=== PATIENT | female | born 1960 | race Two or more races ===

== ENCOUNTER 2018-03-13 16:06 | Inpatient (IN) | payer MEDICAID, OTHER ==
[~2018-03-13] VITALS: Ht 152.4 cm; Wt 65.0 kg
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
[2018-03-13 16:48] LABS: BASOPHILS # (AUTO) 0.01 x10^3/uL (0-0.1); BASOPHILS % (AUTO) 0 % (0-1); EOSINOPHILS # (AUTO) 0.05 x10^3/uL (0-0.4); EOSINOPHILS % (AUTO) 1 % (1-7); LYMPHOCYTES # (AUTO) 2.62 x10^3/uL (1-3.4); LYMPHOCYTES % (AUTO) 31 % (22-44); MD NO; MEAN CORPUSCULAR HEMOGLOBIN 31.7 pg (27.0-34.8); MEAN CORPUSCULAR HGB CONC 33.5 g/dL (32.4-35.8); MEAN CORPUSCULAR VOLUME 94.5 fL (80-100); MEAN PLATELET VOLUME 9.6 fL (7.4-10.4); MONOCYTES # (AUTO) 0.49 x10^3/uL (0.2-0.8); MONOCYTES % (AUTO) 6 % (2-9); NEUTROPHILS # (AUTO) 5.39 x10^3/uL (1.8-6.8); NEUTROPHILS % (AUTO) 63 % (42-75); PLATELET COUNT 240 x10^3/uL (130-400); RED BLOOD COUNT 3.71 x10^6/uL (3.82-5.3); RED CELL DISTRIBUTION WIDTH 14.9 % (9.6-15.2)
[2018-03-13 17:02] LABS: ALANINE AMINOTRANSFERASE 33 U/L (12-78); ALBUMIN 3.8 g/dL (3.4-5.0); ANION GAP 9 mmol/L (5-15); CALCIUM 9.3 mg/dL (8.5-10.1); CHLORIDE 108 mmol/L (98-107); CREATININE 0.97 mg/dL (0.55-1.02)
[2018-03-13 17:03] LABS: SALICYLATE LEVEL < 1.7 mg/dL (2.8-20.0)
[2018-03-13 17:04] LABS: ALKALINE PHOSPHATASE 64 U/L (45-117); BILIRUBIN,TOTAL 0.6 mg/dL (0.2-1.0); TOTAL PROTEIN 7.5 g/dL (6.4-8.2)
[2018-03-13 17:05] LABS: ACETAMINOPHEN < 2 mcg/mL (10-30)
--- NOTE | 2018-03-13 18:09 | NUR ---
LATE ENTRY FOR 1744 PT STATES SHE DOESN'T HAVE TO USE THE BATHROOM AT THIS TIME. PT ASKS THIS RN "ASK ME LATER, I MAY HAVE TO GO THEN." NO ACUTE DISTRESS NOTED. ALL SAFETY MEASURES OBTAINED.
--- NOTE | 2018-03-13 18:14 | NUR ---
PT HAS ONE BELONGING BAG IN LOCKER. RED SHIRT AND JACKET.
--- NOTE | 2018-03-13 18:29 | NUR ---
PT AMBULATORY WITH STEADY GAIT TO BATHROOM. UA SAMPLE PROVIDED. PT BACK TO ROOM. DIET TRAY DELIVERED. ALL SAFETY MEASURES OBTAINED.
[2018-03-13 18:44] LABS: CULTURE INDICATED? YES; MICROSCOPIC INDICATED
[2018-03-13 18:54] LABS: AMPHETAMINE SCREEN, URINE Negative (Negative); BARBITURATE SCREEN, URINE Negative (Negative); BENZODIAZEPINE SCREEN, URINE Negative (Negative); CANNABINOID SCREEN, URINE Negative (Negative); COCAINE SCREEN, URINE Negative (Negative); METHADONE SCREEN, URINE Negative (Negative); OPIATE SCREEN, URINE Negative (Negative)
--- NOTE | 2018-03-13 18:56 | NUR ---
BEDSIDE REPORT TO AP PATIÑO.
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
--- NOTE | 2018-03-13 20:44 | NUR ---
PT SLEEPING. RESPIRATIONS EVEN AND UNLABORED. SITTER OUTSIDE DOOR. ROOM REMAINS SECURE. WILL CONTINUE TO MONITOR.
--- NOTE | 2018-03-13 21:16 | NUR ---
HOSPITALIST AT BEDSIDE EVALUATING PT.
--- NOTE | 2018-03-13 22:53 | NUR ---
PT CONTINUES TO SLEEP. ROOM SECURE. RESPIRATIONS EVEN AND UNLABORED. SITTER OUTSIDE DOOR MONITORING PT.
[2018-03-14] MEDS ORDERED: ONDANSETRON ODT 4 MG PO PRN
[2018-03-14] MEDS ORDERED: DOCUSATE 100 MG CAPSULE PO PRN
[2018-03-14] MEDS ORDERED: BENZTROPINE 1 MG TABLET PO PRN
--- NOTE | 2018-03-14 00:23 | NUR ---
PT LYING AWAKE ON GURNEY, SITTING QUIETLY WATCHING TV. PT DENIES ANY NEEDS AT THIS TIME. SITTER OUTSIDE DOORWAY MONITORING PT. WILL CONTINUE TO MONITOR.
--- NOTE | 2018-03-14 01:18 | NUR ---
PT SLEEPING. RESPIRATIONS EVEN AND UNLABORED. SITTER OUTSIDE DOOR MONITORING PT, WILL CONTINUE TO MONITOR.
--- NOTE | 2018-03-14 02:49 | NUR ---
PT SLEEPING. SITTER OUTSIDE DOOR MONITORING PT. ROOM REMAINS SECURE. RESPIRATIONS EVEN AND UNLABORED. WILL CONTINUE TO MONITOR.
--- NOTE | 2018-03-14 04:10 | NUR ---
PT CONTINUES TO SLEEP. RESPIRATIONS EVEN AND UNLABORED. SITTER OUTSIDE DOOR MONITORING PT
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
--- NOTE | 2018-03-14 07:00 | NUR ---
REPORT TO AP VASQUEZ
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
--- NOTE | 2018-03-14 08:01 | NUR ---
Pt provided breakfast tray. Pt appreciative. Turned on T.V. in pt's room. Pt appreciative. Introduced new sitter to pt, pt interacting with sitter and says, "Carissa.". NADN. No needs expressed at this time. All safety measures in place. Sitter near doorway in direct line of sight for observation.
--- NOTE | 2018-03-14 08:30 | NUR ---
Pt sitting on gurney watching T.V. Pt cooperative with having vital signs taken. Pt states, "Everyone is doing good in here. There are people walking around. Someone over there (pt points to corner of her room, no one is present)." Pt states, "I don't need anything else in here." NADN. No needs expressed. Sitter near doorway in direct line of sight. All safety measures in place.
--- NOTE | 2018-03-14 09:24 | NUR ---
Pt assisted to restroom. Pt walks with steady gait and balance. Pt talking to self in restroom, saying, "Oh hello." Pt confused on how to shut bathroom door. Pt assisted. Pt ambulates back to room with steady gait and balance. New linens provided and warm blankets provided for comfort measures. NADN. No needs expressed at this time. Pt provided T.V. per request. Pt watching movie and repeatedly stating, "how cute."
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
--- NOTE | 2018-03-14 11:16 | NUR ---
Spoke to Jenae Video Tape Editor and informed her that pt's is present at this time.
--- NOTE | 2018-03-14 11:18 | NUR ---
Pt's states his name is "Lane Hairston".
--- NOTE | 2018-03-14 11:28 | NUR ---
PT TEARFUL AND ASKING , "WHERE DID YOU GO? YOU BETTER NOT LEAVE HERE WITH OUT ME BECAUSE YOU MIGHT LEAVE ME." PT AMBULATED TO RESTROOM WITH HELP OF AND SITTER. PT RETURNED TO ROOM AND PROVIDED WARM BLANKETS FOR COMFORT MEASURES.
--- NOTE | 2018-03-14 12:13 | NUR ---
ATTEMPTED TO CALL REPORT TO MATILDE MABRY RN. RN UNAVAILABLE AT THIS TIME DUE TO "GIVING A PT A MEDICAITON". 2N RN WILL CALL BACK FOR REPORT.
--- NOTE | 2018-03-14 12:21 | NUR ---
PROVIDED REPORT TO AP GATICA. ALL QUESTIONS ANSWERED. PT READY TO TRANSFER FROM ED TO .
--- NOTE | 2018-03-14 13:18 | NUR ---
PT TRANSFERED FROM ED TO FLOOR. PT LEFT WITH ALL PERSONAL BELONGINGS.
[2018-03-14 20:19] VITALS: BP 117/76
[2018-03-14] MEDS: QUETIAPINE 25MG TABLET PO PRN (21:11)
[2018-03-15] MEDS: QUETIAPINE 25MG TABLET PO PRN ×2 (06:29→21:11)
[2018-03-15 07:26] VITALS: BP 114/74
[2018-03-16] MEDS: QUETIAPINE 25MG TABLET PO PRN (04:15)
[2018-03-16 07:21] VITALS: BP 112/70
[2018-03-16] MEDS: MEMANTINE 10MG TABLET PO SCH (12:02)
[2018-03-16 20:14] VITALS: BP 110/74
[2018-03-17] MEDS: QUETIAPINE 25MG TABLET PO PRN ×3 (02:56→20:58)
[2018-03-17] MEDS: MEMANTINE 10MG TABLET PO SCH (07:35)
[2018-03-17 08:12] VITALS: BP 122/71
[2018-03-17] MEDS ORDERED: LORazepam 2 MG/ML, 1ML IVPush ONE ×2 (12:08→12:30)
[2018-03-17 13:02] VITALS: BP 89/59
[2018-03-17] MEDS ORDERED: OMNIPAQUE 350 MG/ML, 100ML BOTTLE ONE (13:18)
[2018-03-17 13:22] LABS: ALANINE AMINOTRANSFERASE 21 U/L (12-78); ALBUMIN 2.9 g/dL (3.4-5.0); ANION GAP 6 mmol/L (5-15); CALCIUM 8.4 mg/dL (8.5-10.1); CHLORIDE 108 mmol/L (98-107); CREATININE 0.82 mg/dL (0.55-1.02)
[2018-03-17 13:24] LABS: ALKALINE PHOSPHATASE 49 U/L (45-117); BILIRUBIN,TOTAL 0.6 mg/dL (0.2-1.0); TOTAL PROTEIN 5.8 g/dL (6.4-8.2)
[2018-03-17] MEDS ORDERED: SODIUM CHLORIDE 0.45% 1,000 ML IV SCH (13:30)
[2018-03-17] MEDS ORDERED: MAGNESIUM SULFATE PMX 4GM/100M 100 ML IV ONE (13:30)
[2018-03-17] MEDS ORDERED: PINK LADY ENEMA 490 ML BOTTLE PR SCH (13:30)
[2018-03-17] MEDS ORDERED: POTASSIUM CHLORIDE 20 MEQ TAB.ER.PRT PO ONE ×2 (13:30→17:30)
[2018-03-17 13:40] LABS: BASOPHILS # (AUTO) 0.02 x10^3/uL (0-0.1); BASOPHILS % (AUTO) 0 % (0-1); EOSINOPHILS % (AUTO) 2 % (1-7); LYMPHOCYTES # (AUTO) 2.09 x10^3/uL (1-3.4); LYMPHOCYTES % (AUTO) 41 % (22-44); MD NO; MEAN CORPUSCULAR HEMOGLOBIN 32.2 pg (27.0-34.8); MEAN CORPUSCULAR HGB CONC 34.2 g/dL (32.4-35.8); MEAN CORPUSCULAR VOLUME 94.2 fL (80-100); MEAN PLATELET VOLUME 9.3 fL (7.4-10.4); MONOCYTES # (AUTO) 0.31 x10^3/uL (0.2-0.8); MONOCYTES % (AUTO) 6 % (2-9); NEUTROPHILS % (AUTO) 51 % (42-75); PLATELET COUNT 206 x10^3/uL (130-400); RED BLOOD COUNT 3.24 x10^6/uL (3.82-5.3); RED CELL DISTRIBUTION WIDTH 14.6 % (9.6-15.2)
[2018-03-17] MEDS: POTASSIUM CHLORIDE 20 MEQ in SODIUM CHLORIDE 0.45% 1,000 ML IV SCH (14:51)
[2018-03-17 15:53] LABS: MICROSCOPIC NOT IND
[2018-03-17 16:01] LABS: CULTURE INDICATED? NO
[2018-03-17] MEDS: MAGNESIUM CITRATE 300ML ORAL SOL PO PRN (17:28)
[2018-03-17] MEDS: NEUTRA PHOS K 250 MG TABLET PO SCH ×2 (17:29→20:58)
[2018-03-17] MEDS: BISACODYL 10 MG SUPP PR PRN (18:35)
[2018-03-17 20:00] VITALS: BP 94/51
[2018-03-18 03:00] VITALS: BP 94/62
[2018-03-18] MEDS: POTASSIUM CHLORIDE 20 MEQ in SODIUM CHLORIDE 0.45% 1,000 ML IV SCH ×2 (04:38→16:26)
[2018-03-18] MEDS: QUETIAPINE 25MG TABLET PO PRN ×3 (04:58→20:05)
[2018-03-18 05:55] LABS: BASOPHILS # (AUTO) 0.02 x10^3/uL (0-0.1); BASOPHILS % (AUTO) 0 % (0-1); EOSINOPHILS # (AUTO) 0.08 x10^3/uL (0-0.4); EOSINOPHILS % (AUTO) 1 % (1-7); LYMPHOCYTES # (AUTO) 2.32 x10^3/uL (1-3.4); LYMPHOCYTES % (AUTO) 36 % (22-44); MD NO; MEAN CORPUSCULAR HEMOGLOBIN 31.3 pg (27.0-34.8); MEAN CORPUSCULAR HGB CONC 33.2 g/dL (32.4-35.8); MEAN CORPUSCULAR VOLUME 94.2 fL (80-100); MEAN PLATELET VOLUME 10.1 fL (7.4-10.4); MONOCYTES # (AUTO) 0.47 x10^3/uL (0.2-0.8); MONOCYTES % (AUTO) 7 % (2-9); NEUTROPHILS # (AUTO) 3.57 x10^3/uL (1.8-6.8); NEUTROPHILS % (AUTO) 55 % (42-75); PLATELET COUNT 232 x10^3/uL (130-400); RED BLOOD COUNT 3.83 x10^6/uL (3.82-5.3); RED CELL DISTRIBUTION WIDTH 14.8 % (9.6-15.2)
[2018-03-18 05:57] LABS: CHLORIDE 110 mmol/L (98-107)
[2018-03-18 06:28] LABS: ALANINE AMINOTRANSFERASE 27 U/L (12-78); ALBUMIN 3.2 g/dL (3.4-5.0); ALKALINE PHOSPHATASE 59 U/L (45-117); ANION GAP 7 mmol/L (5-15); BILIRUBIN,TOTAL 0.8 mg/dL (0.2-1.0); CALCIUM 8.4 mg/dL (8.5-10.1); CREATININE 0.75 mg/dL (0.55-1.02); TOTAL PROTEIN 6.6 g/dL (6.4-8.2)
[2018-03-18] MEDS: NEUTRA PHOS K 250 MG TABLET PO SCH ×3 (09:23→20:05)
[2018-03-18] MEDS: MEMANTINE 10MG TABLET PO SCH (09:23)
[2018-03-18 09:49] VITALS: BP 118/80
[2018-03-18 14:52] VITALS: BP 104/72
[2018-03-18] MEDS: BISACODYL 10 MG SUPP PR PRN (15:11)
[2018-03-18] MEDS: ENOXAPARIN 40 MG/0.4 ML SQ SCH (17:37)
[2018-03-18 19:20] VITALS: BP 96/54
[2018-03-19 00:56] VITALS: BP 106/65
[2018-03-19] MEDS: POTASSIUM CHLORIDE 20 MEQ in SODIUM CHLORIDE 0.45% 1,000 ML IV SCH ×2 (02:23→14:34)
[2018-03-19] MEDS: QUETIAPINE 25MG TABLET PO PRN ×3 (05:11→17:40)
[2018-03-19] MEDS: ZIPRASIDONE 20 MG INJ IM PRN ×2 (05:33→19:20)
[2018-03-19 07:21] VITALS: BP 109/61
[2018-03-19] MEDS: NEUTRA PHOS K 250 MG TABLET PO SCH ×2 (09:00→09:53)
[2018-03-19] MEDS: MEMANTINE 10MG TABLET PO SCH ×2 (09:00→09:53)
[2018-03-19 13:02] VITALS: BP 104/61
[2018-03-19] MEDS: ENOXAPARIN 40 MG/0.4 ML SQ SCH (15:34)
[2018-03-19 18:55] VITALS: BP 93/63
[2018-03-20] MEDS: POTASSIUM CHLORIDE 20 MEQ in SODIUM CHLORIDE 0.45% 1,000 ML IV SCH (02:47)
[2018-03-20 02:58] VITALS: BP 110/62
[2018-03-20 06:55] VITALS: BP 104/65
[2018-03-20] MEDS: MEMANTINE 10MG TABLET PO SCH (09:00)
[2018-03-20 12:23] VITALS: BP 130/66
[2018-03-20] MEDS: ENOXAPARIN 40 MG/0.4 ML SQ SCH (16:00)
[2018-03-20] MEDS: ZIPRASIDONE 20 MG INJ IM PRN (16:30)
[2018-03-20 20:00] VITALS: BP 92/55
[2018-03-21 02:00] VITALS: BP 116/72
[2018-03-21 06:49] VITALS: BP 101/62
[2018-03-21] MEDS: MEMANTINE 10MG TABLET PO SCH (09:04)
[2018-03-21] MEDS: MAGNESIUM CITRATE 300ML ORAL SOL PO PRN (11:19)
[2018-03-21 12:14] VITALS: BP 117/72
[2018-03-21] MEDS: ENOXAPARIN 40 MG/0.4 ML SQ SCH (16:04)
[2018-03-21] MEDS: QUETIAPINE 25MG TABLET PO PRN (19:13)
[2018-03-21 19:46] VITALS: BP 106/64
[2018-03-22 02:30] VITALS: BP 112/66
[2018-03-22 05:51] LABS: BASOPHILS # (AUTO) 0.02 x10^3/uL (0-0.1); BASOPHILS % (AUTO) 0 % (0-1); EOSINOPHILS # (AUTO) 0.06 x10^3/uL (0-0.4); EOSINOPHILS % (AUTO) 1 % (1-7); LYMPHOCYTES # (AUTO) 1.46 x10^3/uL (1-3.4); LYMPHOCYTES % (AUTO) 26 % (22-44); MD NO; MEAN CORPUSCULAR HGB CONC 32.6 g/dL (32.4-35.8); MEAN CORPUSCULAR VOLUME 95.2 fL (80-100); MEAN PLATELET VOLUME 9.8 fL (7.4-10.4); MONOCYTES # (AUTO) 0.37 x10^3/uL (0.2-0.8); MONOCYTES % (AUTO) 7 % (2-9); NEUTROPHILS # (AUTO) 3.78 x10^3/uL (1.8-6.8); NEUTROPHILS % (AUTO) 66 % (42-75); PLATELET COUNT 208 x10^3/uL (130-400); RED BLOOD COUNT 3.79 x10^6/uL (3.82-5.3); RED CELL DISTRIBUTION WIDTH 14.1 % (9.6-15.2)
[2018-03-22 06:07] LABS: ALANINE AMINOTRANSFERASE 25 U/L (12-78); ALBUMIN 3.2 g/dL (3.4-5.0); ANION GAP 9 mmol/L (5-15); CALCIUM 8.8 mg/dL (8.5-10.1); CHLORIDE 111 mmol/L (98-107); CREATININE 0.76 mg/dL (0.55-1.02)
[2018-03-22 06:10] LABS: ALKALINE PHOSPHATASE 60 U/L (45-117); BILIRUBIN,TOTAL 0.4 mg/dL (0.2-1.0); TOTAL PROTEIN 6.7 g/dL (6.4-8.2)
[2018-03-22 06:46] VITALS: BP 116/72
[2018-03-22] MEDS: MEMANTINE 10MG TABLET PO SCH (08:36)
[2018-03-22] MEDS: QUETIAPINE 25MG TABLET PO SCH ×2 (13:35→20:35)
[2018-03-22 13:55] VITALS: BP 121/66
[2018-03-22] MEDS: ENOXAPARIN 40 MG/0.4 ML SQ SCH (16:00)
[2018-03-22 19:00] VITALS: BP 131/64
[2018-03-23 01:13] VITALS: BP 105/66
[2018-03-23 08:45] VITALS: BP 118/79
[2018-03-23] MEDS: QUETIAPINE 25MG TABLET PO SCH ×2 (09:30→20:03)
[2018-03-23] MEDS: MEMANTINE 10MG TABLET PO SCH (09:30)
[2018-03-23 13:50] VITALS: BP 99/63
[2018-03-23] MEDS: ENOXAPARIN 40 MG/0.4 ML SQ SCH (16:41)
[2018-03-23 19:13] VITALS: BP 93/55
[2018-03-24 01:41] VITALS: BP 105/68
[2018-03-24 06:26] VITALS: BP 117/72
[2018-03-24] MEDS: QUETIAPINE 25MG TABLET PO SCH ×3 (09:00→20:24)
[2018-03-24] MEDS: MEMANTINE 10MG TABLET PO SCH ×2 (09:00→09:46)
[2018-03-24 14:26] VITALS: BP 120/76
[2018-03-24] MEDS: ENOXAPARIN 40 MG/0.4 ML SQ SCH (16:00)
[2018-03-24 20:00] VITALS: BP 97/54
[2018-03-25 02:00] VITALS: BP 108/80
[2018-03-25 07:11] VITALS: BP 112/83
[2018-03-25] MEDS: QUETIAPINE 25MG TABLET PO SCH ×2 (08:04→21:00)
[2018-03-25] MEDS: MEMANTINE 10MG TABLET PO SCH (08:04)
[2018-03-25] MEDS: ZIPRASIDONE 20 MG INJ IM PRN (12:07)
[2018-03-25] MEDS: ENOXAPARIN 40 MG/0.4 ML SQ SCH (16:00)
[2018-03-25 19:11] VITALS: BP 104/64
[2018-03-26 01:06] VITALS: BP 99/62
[2018-03-26 06:37] VITALS: BP 100/63
[2018-03-26] MEDS: MEMANTINE 10MG TABLET PO SCH (09:09)
[2018-03-26] MEDS: QUETIAPINE 25MG TABLET PO SCH ×2 (09:09→20:47)
[2018-03-26 12:18] VITALS: BP 116/69
[2018-03-26] MEDS: ENOXAPARIN 40 MG/0.4 ML SQ SCH (15:26)
[2018-03-26 19:09] VITALS: BP 125/71
[2018-03-26] MEDS ORDERED: DIPHENHYDRAMINE 50 MG CAPSULE ONE (21:26)
[2018-03-26] MEDS: DIPHENHYDRAMINE 50 MG CAPSULE PO PRN (21:30)
[2018-03-27 03:45] VITALS: BP 116/69
[2018-03-27 06:37] VITALS: BP 115/71
[2018-03-27] MEDS: MEMANTINE 10MG TABLET PO SCH (08:40)
[2018-03-27] MEDS: QUETIAPINE 25MG TABLET PO SCH ×2 (08:40→22:00)
[2018-03-27 12:03] VITALS: BP 112/70
[2018-03-27] MEDS: ENOXAPARIN 40 MG/0.4 ML SQ SCH (16:30)
[2018-03-27 19:39] VITALS: BP 107/69
[2018-03-27] MEDS: DOCUSATE 100 MG CAPSULE PO SCH (22:00)
[2018-03-28 02:30] VITALS: BP 112/64
[2018-03-28 06:33] VITALS: BP 95/61
[2018-03-28] MEDS: QUETIAPINE 25MG TABLET PO SCH ×2 (08:50→22:01)
[2018-03-28] MEDS: MEMANTINE 10MG TABLET PO SCH (08:50)
[2018-03-28] MEDS: DOCUSATE 100 MG CAPSULE PO SCH ×2 (09:00→22:01)
[2018-03-28 12:11] VITALS: BP 96/59
[2018-03-28] MEDS: ENOXAPARIN 40 MG/0.4 ML SQ SCH (15:44)
[2018-03-28 19:34] VITALS: BP 98/62
[2018-03-29 03:45] VITALS: BP 109/66
[2018-03-29 08:09] VITALS: BP 103/55
[2018-03-29] MEDS: MEMANTINE 10MG TABLET PO SCH ×2 (08:14→09:00)
[2018-03-29] MEDS: QUETIAPINE 25MG TABLET PO SCH ×3 (08:15→21:24)
[2018-03-29] MEDS: DOCUSATE 100 MG CAPSULE PO SCH ×2 (08:17→21:23)
[2018-03-29] MEDS: ZIPRASIDONE 20 MG INJ IM PRN (10:04)
[2018-03-29] MEDS: ENOXAPARIN 40 MG/0.4 ML SQ SCH (16:00)
[2018-03-29 20:12] VITALS: BP 98/64
[2018-03-30 01:04] VITALS: BP 90/53
[2018-03-30 07:25] VITALS: BP 96/58
[2018-03-30] MEDS: QUETIAPINE 25MG TABLET PO SCH ×2 (10:15→20:08)
[2018-03-30] MEDS: MEMANTINE 10MG TABLET PO SCH (10:15)
[2018-03-30] MEDS: DOCUSATE 100 MG CAPSULE PO SCH ×2 (10:15→20:07)
[2018-03-30] MEDS: ENOXAPARIN 40 MG/0.4 ML SQ SCH (18:21)
[2018-03-30 19:46] VITALS: BP 120/73
[2018-03-31] MEDS: ZIPRASIDONE 20 MG INJ IM PRN (00:12)
[2018-03-31 01:05] VITALS: BP 106/65
[2018-03-31] MEDS: QUETIAPINE 25MG TABLET PO SCH ×2 (08:14→20:17)
[2018-03-31] MEDS: DOCUSATE 100 MG CAPSULE PO SCH ×2 (08:15→20:17)
[2018-03-31] MEDS: MEMANTINE 10MG TABLET PO SCH (08:15)
[2018-03-31 08:21] VITALS: BP 110/69
[2018-03-31] MEDS: TAMSULOSIN 0.4 MG CAP.ER.24H PO SCH ×2 (10:00→13:45)
[2018-03-31 14:18] VITALS: BP 109/68
[2018-03-31] MEDS: ENOXAPARIN 40 MG/0.4 ML SQ SCH (17:52)
[2018-03-31 19:37] VITALS: BP 94/68
[2018-04-01 03:24] VITALS: BP 117/68
[2018-04-01] MEDS: ZIPRASIDONE 20 MG INJ IM PRN ×2 (06:16→14:58)
[2018-04-01 07:28] VITALS: BP 130/78
[2018-04-01] MEDS: TAMSULOSIN 0.4 MG CAP.ER.24H PO SCH (10:17)
[2018-04-01] MEDS: QUETIAPINE 25MG TABLET PO SCH ×2 (10:17→22:44)
[2018-04-01] MEDS: DOCUSATE 100 MG CAPSULE PO SCH ×2 (10:17→22:44)
[2018-04-01] MEDS: MEMANTINE 10MG TABLET PO SCH (10:17)
[2018-04-01] MEDS: POLYETHYLENE GLYCOL 17 GM PACKET PO PRN (10:54)
[2018-04-01 14:50] VITALS: BP 135/79
[2018-04-01] MEDS: ENOXAPARIN 40 MG/0.4 ML SQ SCH (16:00)
[2018-04-01 21:56] VITALS: BP 93/54
[2018-04-01] MEDS: MAGNESIUM CITRATE 300ML ORAL SOL PO PRN (22:44)
[2018-04-02] MEDS: ZIPRASIDONE 20 MG INJ IM PRN ×2 (00:04→06:44)
[2018-04-02 03:50] VITALS: BP 113/66
[2018-04-02 07:27] VITALS: BP 109/68
[2018-04-02] MEDS: DOCUSATE 100 MG CAPSULE PO SCH ×2 (08:08→20:41)
[2018-04-02] MEDS: QUETIAPINE 25MG TABLET PO SCH ×2 (08:08→20:41)
[2018-04-02] MEDS: MEMANTINE 10MG TABLET PO SCH (08:08)
[2018-04-02] MEDS: TAMSULOSIN 0.4 MG CAP.ER.24H PO SCH (08:08)
[2018-04-02 14:36] VITALS: BP 102/67
[2018-04-02] MEDS: ENOXAPARIN 40 MG/0.4 ML SQ SCH (15:19)
[2018-04-02 18:40] VITALS: BP 113/65
[2018-04-03 04:06] VITALS: BP 115/75
[2018-04-03 06:40] VITALS: BP 119/72
[2018-04-03] MEDS: DOCUSATE 100 MG CAPSULE PO SCH ×3 (08:33→20:54)
[2018-04-03] MEDS: TAMSULOSIN 0.4 MG CAP.ER.24H PO SCH (08:34)
[2018-04-03] MEDS: QUETIAPINE 25MG TABLET PO SCH ×3 (08:34→20:54)
[2018-04-03] MEDS: MEMANTINE 10MG TABLET PO SCH (08:34)
[2018-04-03] MEDS: ZIPRASIDONE 20 MG INJ IM PRN ×2 (11:29→22:39)
[2018-04-03 14:45] VITALS: BP 112/63
[2018-04-03] MEDS: ENOXAPARIN 40 MG/0.4 ML SQ SCH (16:00)
[2018-04-03] MEDS: QUETIAPINE 25MG TABLET PO PRN (17:47)
[2018-04-03 18:54] VITALS: BP 95/60
[2018-04-04 02:00] VITALS: BP 124/71
[2018-04-04] MEDS: QUETIAPINE 25MG TABLET PO PRN (04:22)
[2018-04-04 06:43] VITALS: BP 123/73
[2018-04-04] MEDS: DOCUSATE 100 MG CAPSULE PO SCH ×2 (09:00→20:52)
[2018-04-04] MEDS: ENOXAPARIN 40 MG/0.4 ML SQ SCH (09:09)
[2018-04-04] MEDS: MEMANTINE 10MG TABLET PO SCH (09:10)
[2018-04-04] MEDS: QUETIAPINE 25MG TABLET PO SCH ×4 (09:10→20:58)
[2018-04-04] MEDS: TAMSULOSIN 0.4 MG CAP.ER.24H PO SCH (09:11)
[2018-04-04 13:14] VITALS: BP 128/66
[2018-04-04 19:38] VITALS: BP_SYST 117; BP_SYST 97; BP_DIAS 57; BP_DIAS 70
[2018-04-04] MEDS: ZIPRASIDONE 20 MG INJ IM PRN (21:43)
[2018-04-05 03:25] VITALS: BP 109/71
[2018-04-05 08:39] VITALS: BP 100/54
[2018-04-05] MEDS: MEMANTINE 10MG TABLET PO SCH (09:48)
[2018-04-05] MEDS: DOCUSATE 100 MG CAPSULE PO SCH ×2 (09:48→21:00)
[2018-04-05] MEDS: QUETIAPINE 25MG TABLET PO SCH ×2 (09:48→16:20)
[2018-04-05] MEDS: TAMSULOSIN 0.4 MG CAP.ER.24H PO SCH (09:48)
[2018-04-05] MEDS: ENOXAPARIN 40 MG/0.4 ML SQ SCH (09:49)
[2018-04-05 14:00] VITALS: BP 113/64
[2018-04-05 22:30] VITALS: BP 95/61
[2018-04-06] MEDS: QUETIAPINE 25MG TABLET PO SCH ×4 (00:08→16:00)
[2018-04-06] MEDS: DOCUSATE 100 MG CAPSULE PO SCH ×3 (00:09→20:39)
[2018-04-06 07:51] VITALS: BP 112/78
[2018-04-06] MEDS: ENOXAPARIN 40 MG/0.4 ML SQ SCH ×2 (09:50→16:03)
[2018-04-06] MEDS: MEMANTINE 10MG TABLET PO SCH (09:50)
[2018-04-06] MEDS: POLYETHYLENE GLYCOL 17 GM PACKET PO PRN (09:50)
[2018-04-06] MEDS: TAMSULOSIN 0.4 MG CAP.ER.24H PO SCH (09:50)
[2018-04-06 12:38] VITALS: BP 132/75
[2018-04-06] MEDS: QUETIAPINE 100MG TABLET PO SCH (20:00)
[2018-04-07] MEDS: QUETIAPINE 25MG TABLET PO SCH ×2 (08:00→11:44)
[2018-04-07 08:08] VITALS: BP 112/75
[2018-04-07] MEDS: ENOXAPARIN 40 MG/0.4 ML SQ SCH (08:53)
[2018-04-07] MEDS: TAMSULOSIN 0.4 MG CAP.ER.24H PO SCH (08:53)
[2018-04-07] MEDS: MEMANTINE 10MG TABLET PO SCH (08:53)
[2018-04-07] MEDS: DOCUSATE 100 MG CAPSULE PO SCH ×2 (08:53→20:10)
[2018-04-07 15:00] VITALS: BP 109/55
[2018-04-07] MEDS: QUETIAPINE 100MG TABLET PO SCH (20:10)
[2018-04-08 03:02] VITALS: BP 95/64
[2018-04-08] MEDS: ZIPRASIDONE 20 MG INJ IM PRN (03:22)
[2018-04-08 05:10] VITALS: BP 117/83
[2018-04-08 06:12] LABS: BASOPHILS # (AUTO) 0.02 x10^3/uL (0-0.1); BASOPHILS % (AUTO) 0 % (0-1); EOSINOPHILS # (AUTO) 0.09 x10^3/uL (0-0.4); EOSINOPHILS % (AUTO) 1 % (1-7); LYMPHOCYTES # (AUTO) 2.06 x10^3/uL (1-3.4); LYMPHOCYTES % (AUTO) 29 % (22-44); MD NO; MEAN CORPUSCULAR HEMOGLOBIN 31.2 pg (27.0-34.8); MEAN CORPUSCULAR HGB CONC 32.8 g/dL (32.4-35.8); MEAN CORPUSCULAR VOLUME 94.9 fL (80-100); MEAN PLATELET VOLUME 10.5 fL (7.4-10.4); MONOCYTES # (AUTO) 0.38 x10^3/uL (0.2-0.8); MONOCYTES % (AUTO) 5 % (2-9); NEUTROPHILS # (AUTO) 4.55 x10^3/uL (1.8-6.8); NEUTROPHILS % (AUTO) 64 % (42-75); PLATELET COUNT 233 x10^3/uL (130-400); RED BLOOD COUNT 3.78 x10^6/uL (3.82-5.3); RED CELL DISTRIBUTION WIDTH 14.3 % (9.6-15.2)
[2018-04-08 06:22] LABS: CHLORIDE 109 mmol/L (98-107)
[2018-04-08 06:32] LABS: ALANINE AMINOTRANSFERASE 24 U/L (12-78); ALBUMIN 3.4 g/dL (3.4-5.0); ALKALINE PHOSPHATASE 65 U/L (45-117); ANION GAP 8 mmol/L (5-15); BILIRUBIN,TOTAL 0.3 mg/dL (0.2-1.0); CALCIUM 9.6 mg/dL (8.5-10.1); CREATININE 0.97 mg/dL (0.55-1.02); TOTAL PROTEIN 7.4 g/dL (6.4-8.2)
[2018-04-08 07:27] VITALS: BP 134/81
[2018-04-08] MEDS: TAMSULOSIN 0.4 MG CAP.ER.24H PO SCH (08:37)
[2018-04-08] MEDS: ENOXAPARIN 40 MG/0.4 ML SQ SCH (08:37)
[2018-04-08] MEDS: QUETIAPINE 25MG TABLET PO SCH ×2 (08:38→12:08)
[2018-04-08] MEDS: MEMANTINE 10MG TABLET PO SCH (08:38)
[2018-04-08] MEDS: DOCUSATE 100 MG CAPSULE PO SCH ×2 (08:38→20:27)
[2018-04-08 18:46] VITALS: BP 99/60
[2018-04-08] MEDS: QUETIAPINE 100MG TABLET PO SCH (20:27)
[2018-04-09 02:25] VITALS: BP 95/65
[2018-04-09 06:49] VITALS: BP 124/79
[2018-04-09] MEDS: ENOXAPARIN 40 MG/0.4 ML SQ SCH ×2 (08:15→08:22)
[2018-04-09] MEDS: DOCUSATE 100 MG CAPSULE PO SCH ×2 (08:15→19:20)
[2018-04-09] MEDS: TAMSULOSIN 0.4 MG CAP.ER.24H PO SCH (08:15)
[2018-04-09] MEDS: MEMANTINE 10MG TABLET PO SCH (08:15)
[2018-04-09] MEDS: QUETIAPINE 25MG TABLET PO SCH ×2 (08:16→12:00)
[2018-04-09 13:23] VITALS: BP 111/51
[2018-04-09] MEDS: ZIPRASIDONE 20 MG INJ IM PRN (13:29)
[2018-04-09] MEDS: QUETIAPINE 100MG TABLET PO SCH (19:20)
[2018-04-10] MEDS: ZIPRASIDONE 20 MG INJ IM PRN ×3 (00:42→22:25)
[2018-04-10] MEDS: MEMANTINE 10MG TABLET PO SCH ×2 (07:38→09:00)
[2018-04-10] MEDS: TAMSULOSIN 0.4 MG CAP.ER.24H PO SCH ×2 (07:38→09:00)
[2018-04-10] MEDS: DOCUSATE 100 MG CAPSULE PO SCH ×3 (07:38→21:00)
[2018-04-10] MEDS: ENOXAPARIN 40 MG/0.4 ML SQ SCH (07:39)
[2018-04-10] MEDS: QUETIAPINE 25MG TABLET PO SCH ×2 (07:39→12:00)
[2018-04-10 12:40] VITALS: BP 128/54
[2018-04-10] MEDS: QUETIAPINE 100MG TABLET PO SCH ×2 (20:00→22:30)
[2018-04-10 20:06] VITALS: BP 116/64
[2018-04-10] MEDS ORDERED: QUETIAPINE 25MG TABLET ONE (22:13)
[2018-04-11 02:23] VITALS: BP 143/84
[2018-04-11 06:12] LABS: BASOPHILS # (AUTO) 0.02 x10^3/uL (0-0.1); BASOPHILS % (AUTO) 0 % (0-1); EOSINOPHILS # (AUTO) 0.06 x10^3/uL (0-0.4); EOSINOPHILS % (AUTO) 1 % (1-7); LYMPHOCYTES # (AUTO) 2.16 x10^3/uL (1-3.4); LYMPHOCYTES % (AUTO) 23 % (22-44); MD NO; MEAN CORPUSCULAR HEMOGLOBIN 30.9 pg (27.0-34.8); MEAN CORPUSCULAR HGB CONC 32.9 g/dL (32.4-35.8); MEAN CORPUSCULAR VOLUME 93.9 fL (80-100); MEAN PLATELET VOLUME 10.2 fL (7.4-10.4); MONOCYTES # (AUTO) 0.49 x10^3/uL (0.2-0.8); MONOCYTES % (AUTO) 5 % (2-9); NEUTROPHILS # (AUTO) 6.88 x10^3/uL (1.8-6.8); NEUTROPHILS % (AUTO) 72 % (42-75); PLATELET COUNT 243 x10^3/uL (130-400); RED BLOOD COUNT 3.73 x10^6/uL (3.82-5.3); RED CELL DISTRIBUTION WIDTH 14.2 % (9.6-15.2)
[2018-04-11 06:17] LABS: ANION GAP 10 mmol/L (5-15); CALCIUM 9.8 mg/dL (8.5-10.1); CHLORIDE 107 mmol/L (98-107); CREATININE 1.03 mg/dL (0.55-1.02)
[2018-04-11] MEDS: TAMSULOSIN 0.4 MG CAP.ER.24H PO SCH (07:32)
[2018-04-11] MEDS: DOCUSATE 100 MG CAPSULE PO SCH ×2 (07:32→19:43)
[2018-04-11] MEDS: MEMANTINE 10MG TABLET PO SCH (07:32)
[2018-04-11] MEDS: QUETIAPINE 25MG TABLET PO SCH ×2 (07:33→13:57)
[2018-04-11] MEDS: ENOXAPARIN 40 MG/0.4 ML SQ SCH (09:00)
[2018-04-11] MEDS: ZIPRASIDONE 20 MG INJ IM PRN (09:13)
[2018-04-11 18:09] VITALS: BP 134/73
[2018-04-11] MEDS: QUETIAPINE 100MG TABLET PO SCH (19:43)
[2018-04-12] MEDS: DIPHENHYDRAMINE 50 MG CAPSULE PO PRN (00:45)
[2018-04-12] MEDS: QUETIAPINE 25MG TABLET PO SCH ×2 (08:00→12:16)
[2018-04-12] MEDS: TAMSULOSIN 0.4 MG CAP.ER.24H PO SCH (08:10)
[2018-04-12] MEDS: MEMANTINE 10MG TABLET PO SCH (08:10)
[2018-04-12] MEDS: DOCUSATE 100 MG CAPSULE PO SCH ×2 (08:11→20:28)
[2018-04-12] MEDS: ENOXAPARIN 40 MG/0.4 ML SQ SCH (08:11)
[2018-04-12 09:20] VITALS: BP 124/67
[2018-04-12] MEDS: ZIPRASIDONE 20 MG INJ IM PRN (17:10)
[2018-04-12] MEDS: QUETIAPINE 100MG TABLET PO SCH (20:28)
[2018-04-13] MEDS: ZIPRASIDONE 20 MG INJ IM PRN ×2 (06:07→18:37)
[2018-04-13] MEDS: ENOXAPARIN 40 MG/0.4 ML SQ SCH (09:00)
[2018-04-13] MEDS: DOCUSATE 100 MG CAPSULE PO SCH ×2 (09:00→22:07)
[2018-04-13] MEDS: TAMSULOSIN 0.4 MG CAP.ER.24H PO SCH (09:38)
[2018-04-13] MEDS: MEMANTINE 10MG TABLET PO SCH (09:38)
[2018-04-13] MEDS: QUETIAPINE 25MG TABLET PO SCH ×2 (09:39→12:41)
[2018-04-13] MEDS: QUETIAPINE 100MG TABLET PO SCH (20:00)
[2018-04-14] MEDS: QUETIAPINE 25MG TABLET PO SCH ×2 (08:00→12:00)
[2018-04-14] MEDS: ENOXAPARIN 40 MG/0.4 ML SQ SCH (09:00)
[2018-04-14] MEDS: TAMSULOSIN 0.4 MG CAP.ER.24H PO SCH (09:00)
[2018-04-14] MEDS: MEMANTINE 10MG TABLET PO SCH (09:00)
[2018-04-14] MEDS: DOCUSATE 100 MG CAPSULE PO SCH ×2 (09:00→21:00)
[2018-04-14] MEDS: ZIPRASIDONE 20 MG INJ IM PRN ×2 (09:52→21:50)
[2018-04-14] MEDS: QUETIAPINE 100MG TABLET PO SCH (20:00)
[2018-04-15] MEDS: MEMANTINE 10MG TABLET PO SCH (08:10)
[2018-04-15] MEDS: DOCUSATE 100 MG CAPSULE PO SCH ×2 (08:11→21:00)
[2018-04-15] MEDS: ENOXAPARIN 40 MG/0.4 ML SQ SCH (08:11)
[2018-04-15] MEDS: TAMSULOSIN 0.4 MG CAP.ER.24H PO SCH (08:11)
[2018-04-15] MEDS: QUETIAPINE 25MG TABLET PO SCH ×2 (08:11→12:10)
[2018-04-15 10:03] LABS: MICROSCOPIC AUTO
[2018-04-15 10:05] LABS: CULTURE INDICATED? YES
[2018-04-15] MEDS: QUETIAPINE 100MG TABLET PO SCH (20:00)
[2018-04-15 20:42] VITALS: BP 169/119
[2018-04-16] MEDS: QUETIAPINE 25MG TABLET PO SCH ×2 (08:00→12:00)
[2018-04-16] MEDS: ENOXAPARIN 40 MG/0.4 ML SQ SCH (08:32)
[2018-04-16] MEDS: DOCUSATE 100 MG CAPSULE PO SCH ×3 (08:32→21:04)
[2018-04-16] MEDS: MEMANTINE 10MG TABLET PO SCH (08:32)
[2018-04-16] MEDS: TAMSULOSIN 0.4 MG CAP.ER.24H PO SCH (08:32)
[2018-04-16] MEDS: ZIPRASIDONE 20 MG INJ IM PRN (13:09)
[2018-04-16 19:24] VITALS: BP 157/92
[2018-04-16] MEDS: QUETIAPINE 100MG TABLET PO SCH ×2 (20:00→21:04)
[2018-04-16] MEDS: ACETAMINOPHEN 325 MG TABLET PO PRN ×2 (21:05→21:44)
[2018-04-17] MEDS: ZIPRASIDONE 20 MG INJ IM PRN (00:12)
[2018-04-17 01:25] VITALS: BP 102/65
[2018-04-17] MEDS ORDERED: LIDOCAINE-MPF 2% ,5ML ONE (07:32)
[2018-04-17] MEDS ORDERED: ROCURONIUM 10MG/ML,5ML ONE (07:32)
[2018-04-17] MEDS ORDERED: PROPOFOL 10 MG/ML, 20ML ONE (07:32)
[2018-04-17 07:45] VITALS: BP 171/81
[2018-04-17] MEDS: TAMSULOSIN 0.4 MG CAP.ER.24H PO SCH (07:48)
[2018-04-17] MEDS: MEMANTINE 10MG TABLET PO SCH (07:48)
[2018-04-17] MEDS: QUETIAPINE 25MG TABLET PO SCH ×2 (07:48→11:42)
[2018-04-17] MEDS: DOCUSATE 100 MG CAPSULE PO SCH ×2 (07:55→20:06)
[2018-04-17] MEDS: ENOXAPARIN 40 MG/0.4 ML SQ SCH (09:47)
[2018-04-17 12:16] LABS: BASOPHILS # (AUTO) 0.01 x10^3/uL (0-0.1); BASOPHILS % (AUTO) 0 % (0-1); EOSINOPHILS # (AUTO) 0.02 x10^3/uL (0-0.4); EOSINOPHILS % (AUTO) 0 % (1-7); LYMPHOCYTES # (AUTO) 2.32 x10^3/uL (1-3.4); LYMPHOCYTES % (AUTO) 24 % (22-44); MD NO; MEAN CORPUSCULAR HEMOGLOBIN 31.5 pg (27.0-34.8); MEAN CORPUSCULAR HGB CONC 33.4 g/dL (32.4-35.8); MEAN CORPUSCULAR VOLUME 94.2 fL (80-100); MONOCYTES # (AUTO) 0.42 x10^3/uL (0.2-0.8); MONOCYTES % (AUTO) 4 % (2-9); NEUTROPHILS # (AUTO) 7.11 x10^3/uL (1.8-6.8); NEUTROPHILS % (AUTO) 72 % (42-75); PLATELET COUNT 250 x10^3/uL (130-400); RED BLOOD COUNT 3.73 x10^6/uL (3.82-5.3); RED CELL DISTRIBUTION WIDTH 13.9 % (9.6-15.2)
[2018-04-17 12:25] LABS: ANION GAP 5 mmol/L (5-15); CALCIUM 9.8 mg/dL (8.5-10.1); CHLORIDE 108 mmol/L (98-107); CREATININE 1.11 mg/dL (0.55-1.02)
[2018-04-17 13:15] VITALS: BP 147/83
[2018-04-17] MEDS: QUETIAPINE 25MG TABLET PO PRN (14:28)
[2018-04-17] MEDS: QUETIAPINE 100MG TABLET PO SCH (18:25)
[2018-04-17 19:16] VITALS: BP 111/69
[2018-04-17] MEDS: DIPHENHYDRAMINE 50 MG CAPSULE PO PRN (20:18)
[2018-04-18 02:50] VITALS: BP 108/69
[2018-04-18 06:05] LABS: ANION GAP 7 mmol/L (5-15); CALCIUM 9.4 mg/dL (8.5-10.1); CHLORIDE 107 mmol/L (98-107)
[2018-04-18 06:06] LABS: CREATININE 1.01 mg/dL (0.55-1.02)
[2018-04-18 06:18] LABS: BASOPHILS # (AUTO) 0.02 x10^3/uL (0-0.1); BASOPHILS % (AUTO) 0 % (0-1); EOSINOPHILS # (AUTO) 0.06 x10^3/uL (0-0.4); EOSINOPHILS % (AUTO) 1 % (1-7); LYMPHOCYTES # (AUTO) 1.58 x10^3/uL (1-3.4); LYMPHOCYTES % (AUTO) 22 % (22-44); MD NO; MEAN CORPUSCULAR HEMOGLOBIN 31.6 pg (27.0-34.8); MEAN CORPUSCULAR HGB CONC 33.5 g/dL (32.4-35.8); MEAN CORPUSCULAR VOLUME 94.3 fL (80-100); MEAN PLATELET VOLUME 9.7 fL (7.4-10.4); MONOCYTES # (AUTO) 0.32 x10^3/uL (0.2-0.8); MONOCYTES % (AUTO) 5 % (2-9); NEUTROPHILS # (AUTO) 5.13 x10^3/uL (1.8-6.8); NEUTROPHILS % (AUTO) 72 % (42-75); PLATELET COUNT 229 x10^3/uL (130-400); RED BLOOD COUNT 3.53 x10^6/uL (3.82-5.3); RED CELL DISTRIBUTION WIDTH 13.9 % (9.6-15.2)
[2018-04-18 07:26] VITALS: BP 132/80
[2018-04-18] MEDS: QUETIAPINE 25MG TABLET PO SCH ×2 (08:00→12:00)
[2018-04-18] MEDS: MEMANTINE 10MG TABLET PO SCH (09:00)
[2018-04-18] MEDS: DOCUSATE 100 MG CAPSULE PO SCH ×2 (09:00→21:00)
[2018-04-18] MEDS: TAMSULOSIN 0.4 MG CAP.ER.24H PO SCH (09:00)
[2018-04-18] MEDS: ENOXAPARIN 40 MG/0.4 ML SQ SCH (09:00)
[2018-04-18 13:41] VITALS: BP 106/68
[2018-04-18] MEDS: QUETIAPINE 100MG TABLET PO SCH (19:00)
[2018-04-18 19:40] VITALS: BP 114/71
[2018-04-19] MEDS: ZIPRASIDONE 20 MG INJ IM PRN (00:25)
[2018-04-19 06:09] LABS: BASOPHILS # (AUTO) 0.02 x10^3/uL (0-0.1); BASOPHILS % (AUTO) 0 % (0-1); EOSINOPHILS # (AUTO) 0.11 x10^3/uL (0-0.4); EOSINOPHILS % (AUTO) 2 % (1-7); LYMPHOCYTES # (AUTO) 2.14 x10^3/uL (1-3.4); LYMPHOCYTES % (AUTO) 30 % (22-44); MD NO; MEAN CORPUSCULAR HEMOGLOBIN 31.5 pg (27.0-34.8); MEAN CORPUSCULAR HGB CONC 33.7 g/dL (32.4-35.8); MEAN CORPUSCULAR VOLUME 93.4 fL (80-100); MEAN PLATELET VOLUME 9.5 fL (7.4-10.4); MONOCYTES # (AUTO) 0.44 x10^3/uL (0.2-0.8); MONOCYTES % (AUTO) 6 % (2-9); NEUTROPHILS # (AUTO) 4.45 x10^3/uL (1.8-6.8); NEUTROPHILS % (AUTO) 62 % (42-75); PLATELET COUNT 214 x10^3/uL (130-400); RED BLOOD COUNT 3.24 x10^6/uL (3.82-5.3)
[2018-04-19 06:20] LABS: ANION GAP 5 mmol/L (5-15); CALCIUM 8.8 mg/dL (8.5-10.1); CHLORIDE 111 mmol/L (98-107); CREATININE 0.92 mg/dL (0.55-1.02)
[2018-04-19] MEDS: QUETIAPINE 100MG TABLET PO SCH ×4 (08:00→19:05)
[2018-04-19] MEDS: TAMSULOSIN 0.4 MG CAP.ER.24H PO SCH (09:00)
[2018-04-19] MEDS: DOCUSATE 100 MG CAPSULE PO SCH ×2 (09:00→21:30)
[2018-04-19] MEDS: MEMANTINE 10MG TABLET PO SCH (09:00)
[2018-04-19] MEDS: ENOXAPARIN 40 MG/0.4 ML SQ SCH (09:00)
[2018-04-19 15:30] VITALS: BP 110/83
[2018-04-19 21:59] VITALS: BP 158/85
[2018-04-20] MEDS: QUETIAPINE 25MG TABLET PO PRN (02:43)
[2018-04-20 03:45] VITALS: BP 159/70
[2018-04-20 07:48] VITALS: BP 118/71
[2018-04-20] MEDS: DOCUSATE 100 MG CAPSULE PO SCH ×2 (08:51→21:00)
[2018-04-20] MEDS: ENOXAPARIN 40 MG/0.4 ML SQ SCH (09:00)
[2018-04-20] MEDS: QUETIAPINE 100MG TABLET PO SCH ×5 (09:20→23:04)
[2018-04-20] MEDS: MEMANTINE 10MG TABLET PO SCH (15:37)
[2018-04-20] MEDS: TAMSULOSIN 0.4 MG CAP.ER.24H PO SCH (15:37)
[2018-04-20] MEDS: VALPROATE SODIUM 250 MG/5 ML ORAL SOLN PO SCH ×3 (15:38→23:03)
[2018-04-21 00:51] VITALS: BP 103/65
[2018-04-21 07:28] VITALS: BP 114/76
[2018-04-21] MEDS: QUETIAPINE 100MG TABLET PO SCH ×3 (08:00→19:00)
[2018-04-21] MEDS: ENOXAPARIN 40 MG/0.4 ML SQ SCH (09:00)
[2018-04-21] MEDS: VALPROATE SODIUM 250 MG/5 ML ORAL SOLN PO SCH ×2 (09:25→21:00)
[2018-04-21] MEDS: DOCUSATE 100 MG CAPSULE PO SCH ×2 (09:25→21:00)
[2018-04-21] MEDS: TAMSULOSIN 0.4 MG CAP.ER.24H PO SCH (09:25)
[2018-04-21] MEDS: MEMANTINE 10MG TABLET PO SCH (09:25)
[2018-04-21] MEDS: ZIPRASIDONE 20 MG INJ IM PRN ×2 (13:41→13:56)
[2018-04-21 20:42] VITALS: BP 97/60
[2018-04-22 06:48] VITALS: BP 147/81
[2018-04-22] MEDS: VALPROATE SODIUM 250 MG/5 ML ORAL SOLN PO SCH ×3 (09:00→21:00)
[2018-04-22] MEDS: ENOXAPARIN 40 MG/0.4 ML SQ SCH ×2 (09:00→09:27)
[2018-04-22] MEDS: MEMANTINE 10MG TABLET PO SCH ×2 (09:00→09:27)
[2018-04-22] MEDS: DOCUSATE 100 MG CAPSULE PO SCH ×3 (09:00→21:00)
[2018-04-22] MEDS: TAMSULOSIN 0.4 MG CAP.ER.24H PO SCH ×2 (09:00→09:26)
[2018-04-22] MEDS: QUETIAPINE 100MG TABLET PO SCH ×3 (09:26→18:09)
[2018-04-22 13:37] VITALS: BP 97/57
[2018-04-23 01:40] VITALS: BP 121/73
[2018-04-23 06:52] VITALS: BP 141/96
[2018-04-23] MEDS: DOCUSATE 100 MG CAPSULE PO SCH ×2 (08:27→20:20)
[2018-04-23] MEDS: QUETIAPINE 100MG TABLET PO SCH ×3 (08:27→20:20)
[2018-04-23] MEDS: VALPROATE SODIUM 250 MG/5 ML ORAL SOLN PO SCH ×2 (08:28→20:20)
[2018-04-23] MEDS: MEMANTINE 10MG TABLET PO SCH (08:28)
[2018-04-23] MEDS: TAMSULOSIN 0.4 MG CAP.ER.24H PO SCH (08:28)
[2018-04-23] MEDS: ENOXAPARIN 40 MG/0.4 ML SQ SCH (08:35)
[2018-04-23 12:40] VITALS: BP 116/76
[2018-04-24 04:52] VITALS: BP 107/64
[2018-04-24] MEDS: QUETIAPINE 100MG TABLET PO SCH ×3 (08:00→22:56)
[2018-04-24] MEDS: MEMANTINE 10MG TABLET PO SCH (09:00)
[2018-04-24] MEDS: ENOXAPARIN 40 MG/0.4 ML SQ SCH (09:00)
[2018-04-24] MEDS: TAMSULOSIN 0.4 MG CAP.ER.24H PO SCH (09:00)
[2018-04-24] MEDS: VALPROATE SODIUM 250 MG/5 ML ORAL SOLN PO SCH (09:00)
[2018-04-24] MEDS: DOCUSATE 100 MG CAPSULE PO SCH ×3 (09:32→23:05)
[2018-04-24] MEDS: ZIPRASIDONE 20 MG INJ IM PRN (12:45)
[2018-04-24] MEDS: DIVALPROEX 125 MG CAP.SPRINK PO SCH ×2 (16:49→22:54)
[2018-04-24 19:10] VITALS: BP 105/63
[2018-04-25 08:00] VITALS: BP 131/83
[2018-04-25] MEDS: DOCUSATE 100 MG CAPSULE PO SCH ×2 (09:36→21:00)
[2018-04-25] MEDS: ENOXAPARIN 40 MG/0.4 ML SQ SCH (11:41)
[2018-04-25] MEDS: DIVALPROEX 125 MG CAP.SPRINK PO SCH ×2 (11:41→21:07)
[2018-04-25] MEDS: MEMANTINE 10MG TABLET PO SCH (11:41)
[2018-04-25] MEDS: QUETIAPINE 100MG TABLET PO SCH ×3 (11:41→21:10)
[2018-04-25] MEDS: TAMSULOSIN 0.4 MG CAP.ER.24H PO SCH (11:41)
[2018-04-25 14:24] VITALS: BP 131/63
[2018-04-25 19:34] VITALS: BP 136/92
[2018-04-25] MEDS: QUETIAPINE 25MG TABLET PO PRN (22:54)
[2018-04-26 01:56] VITALS: BP 138/69
[2018-04-26 07:26] VITALS: BP 122/68
[2018-04-26] MEDS: QUETIAPINE 100MG TABLET PO SCH ×4 (08:00→20:07)
[2018-04-26] MEDS: TAMSULOSIN 0.4 MG CAP.ER.24H PO SCH (09:00)
[2018-04-26] MEDS: ENOXAPARIN 40 MG/0.4 ML SQ SCH (09:00)
[2018-04-26] MEDS: MEMANTINE 10MG TABLET PO SCH (09:00)
[2018-04-26] MEDS: DIVALPROEX 125 MG CAP.SPRINK PO SCH ×3 (09:00→20:20)
[2018-04-26 13:20] VITALS: BP 119/71
[2018-04-26] MEDS: QUETIAPINE 25MG TABLET PO PRN (21:37)
[2018-04-27 06:38] LABS: CLOSTRIDIUM DIFFICILE ANTIGEN NEGATIVE; CLOSTRIDIUM DIFFICILE TOXIN NEGATIVE (Negative)
[2018-04-27] MEDS: MEMANTINE 10MG TABLET PO SCH (09:00)
[2018-04-27] MEDS: ENOXAPARIN 40 MG/0.4 ML SQ SCH (09:00)
[2018-04-27] MEDS: TAMSULOSIN 0.4 MG CAP.ER.24H PO SCH (10:31)
[2018-04-27] MEDS: DIVALPROEX 125 MG CAP.SPRINK PO SCH ×2 (10:31→20:04)
[2018-04-27] MEDS: QUETIAPINE 100MG TABLET PO SCH ×3 (10:32→20:04)
[2018-04-28] MEDS: QUETIAPINE 25MG TABLET PO PRN (01:46)
[2018-04-28] MEDS: QUETIAPINE 100MG TABLET PO SCH ×3 (08:00→19:47)
[2018-04-28] MEDS: DIVALPROEX 125 MG CAP.SPRINK PO SCH ×2 (09:00→19:47)
[2018-04-28] MEDS: ENOXAPARIN 40 MG/0.4 ML SQ SCH (09:00)
[2018-04-28] MEDS: MEMANTINE 10MG TABLET PO SCH (09:00)
[2018-04-28] MEDS: TAMSULOSIN 0.4 MG CAP.ER.24H PO SCH (09:00)
[2018-04-28 21:35] VITALS: BP 126/76
[2018-04-29 06:43] VITALS: BP 131/76
[2018-04-29] MEDS: QUETIAPINE 100MG TABLET PO SCH ×3 (08:00→21:20)
[2018-04-29] MEDS: DIVALPROEX 125 MG CAP.SPRINK PO SCH ×2 (09:00→21:20)
[2018-04-29] MEDS: TAMSULOSIN 0.4 MG CAP.ER.24H PO SCH (09:00)
[2018-04-29] MEDS: ENOXAPARIN 40 MG/0.4 ML SQ SCH (09:00)
[2018-04-29] MEDS: MEMANTINE 10MG TABLET PO SCH (09:00)
[2018-04-30 04:36] LABS: ALBUMIN 2.9 g/dL (3.4-5.0); ANION GAP 7 mmol/L (5-15); CALCIUM 8.7 mg/dL (8.5-10.1); CHLORIDE 109 mmol/L (98-107); CREATININE 0.82 mg/dL (0.55-1.02)
[2018-04-30] MEDS: QUETIAPINE 100MG TABLET PO SCH ×3 (08:00→20:12)
[2018-04-30 08:41] VITALS: BP 109/65
[2018-04-30] MEDS: MEMANTINE 10MG TABLET PO SCH (09:00)
[2018-04-30] MEDS: TAMSULOSIN 0.4 MG CAP.ER.24H PO SCH (09:00)
[2018-04-30] MEDS: ENOXAPARIN 40 MG/0.4 ML SQ SCH (09:00)
[2018-04-30] MEDS: DIVALPROEX 125 MG CAP.SPRINK PO SCH ×2 (09:16→20:11)
[2018-04-30] MEDS: ZIPRASIDONE 20 MG INJ IM PRN (12:06)
[2018-04-30 13:38] VITALS: BP 119/71
[2018-05-01 02:19] VITALS: BP 115/69
[2018-05-01] MEDS: ENOXAPARIN 40 MG/0.4 ML SQ SCH (09:00)
[2018-05-01] MEDS: DIVALPROEX 125 MG CAP.SPRINK PO SCH ×2 (09:08→21:55)
[2018-05-01] MEDS: MEMANTINE 10MG TABLET PO SCH (09:08)
[2018-05-01] MEDS: TAMSULOSIN 0.4 MG CAP.ER.24H PO SCH (09:08)
[2018-05-01] MEDS: QUETIAPINE 100MG TABLET PO SCH ×3 (09:08→21:55)
[2018-05-01 19:28] VITALS: BP 107/67
[2018-05-02] MEDS: TAMSULOSIN 0.4 MG CAP.ER.24H PO SCH (09:00)
[2018-05-02] MEDS: ENOXAPARIN 40 MG/0.4 ML SQ SCH (09:00)
[2018-05-02] MEDS: DIVALPROEX 125 MG CAP.SPRINK PO SCH ×2 (09:48→20:04)
[2018-05-02] MEDS: MEMANTINE 10MG TABLET PO SCH (09:48)
[2018-05-02] MEDS: QUETIAPINE 100MG TABLET PO SCH ×3 (09:49→19:00)
[2018-05-02 16:10] VITALS: BP 117/76
[2018-05-02 19:23] VITALS: BP 125/66
[2018-05-03] MEDS: QUETIAPINE 100MG TABLET PO SCH ×3 (08:00→20:02)
[2018-05-03] MEDS: DIVALPROEX 125 MG CAP.SPRINK PO SCH ×2 (09:00→21:14)
[2018-05-03] MEDS: TAMSULOSIN 0.4 MG CAP.ER.24H PO SCH (09:00)
[2018-05-03] MEDS: MEMANTINE 10MG TABLET PO SCH (09:00)
[2018-05-03] MEDS: ENOXAPARIN 40 MG/0.4 ML SQ SCH (09:00)
[2018-05-03 18:33] VITALS: BP 106/70
[2018-05-04 07:57] VITALS: BP 150/70
[2018-05-04] MEDS: QUETIAPINE 100MG TABLET PO SCH ×3 (08:00→20:05)
[2018-05-04] MEDS: MEMANTINE 10MG TABLET PO SCH (09:00)
[2018-05-04] MEDS: DIVALPROEX 125 MG CAP.SPRINK PO SCH ×2 (09:00→22:43)
[2018-05-04] MEDS: TAMSULOSIN 0.4 MG CAP.ER.24H PO SCH (09:00)
[2018-05-04] MEDS: ENOXAPARIN 40 MG/0.4 ML SQ SCH (13:03)
[2018-05-04 13:48] VITALS: BP 123/73
[2018-05-05] MEDS: QUETIAPINE 100MG TABLET PO SCH ×4 (08:00→20:52)
[2018-05-05] MEDS: DIVALPROEX 125 MG CAP.SPRINK PO SCH ×3 (09:00→23:53)
[2018-05-05] MEDS: TAMSULOSIN 0.4 MG CAP.ER.24H PO SCH ×2 (09:00→10:04)
[2018-05-05] MEDS: MEMANTINE 10MG TABLET PO SCH ×2 (09:00→10:04)
[2018-05-05] MEDS: ENOXAPARIN 40 MG/0.4 ML SQ SCH (10:44)
[2018-05-05 13:20] VITALS: BP 117/67
[2018-05-06] MEDS: ZIPRASIDONE 20 MG INJ IM PRN (01:15)
[2018-05-06] MEDS: ENOXAPARIN 40 MG/0.4 ML SQ SCH (09:00)
[2018-05-06] MEDS: TAMSULOSIN 0.4 MG CAP.ER.24H PO SCH (09:00)
[2018-05-06] MEDS: QUETIAPINE 100MG TABLET PO SCH ×3 (09:57→20:04)
[2018-05-06] MEDS: DIVALPROEX 125 MG CAP.SPRINK PO SCH ×2 (09:57→20:04)
[2018-05-06] MEDS: MEMANTINE 10MG TABLET PO SCH (11:56)
[2018-05-07] MEDS: QUETIAPINE 100MG TABLET PO SCH ×3 (08:00→19:00)
[2018-05-07] MEDS: MEMANTINE 10MG TABLET PO SCH (09:00)
[2018-05-07] MEDS: ENOXAPARIN 40 MG/0.4 ML SQ SCH (09:00)
[2018-05-07] MEDS: DIVALPROEX 125 MG CAP.SPRINK PO SCH ×3 (09:00→23:19)
[2018-05-07] MEDS: TAMSULOSIN 0.4 MG CAP.ER.24H PO SCH (09:00)
[2018-05-08 00:30] VITALS: BP 122/72
[2018-05-08] MEDS: QUETIAPINE 25MG TABLET PO PRN (03:36)
[2018-05-08] MEDS: QUETIAPINE 100MG TABLET PO SCH ×4 (08:30→22:15)
[2018-05-08] MEDS: ENOXAPARIN 40 MG/0.4 ML SQ SCH (09:00)
[2018-05-08] MEDS: DIVALPROEX 125 MG CAP.SPRINK PO SCH ×3 (09:00→21:00)
[2018-05-08] MEDS: MEMANTINE 10MG TABLET PO SCH (09:00)
[2018-05-08] MEDS: TAMSULOSIN 0.4 MG CAP.ER.24H PO SCH (09:00)
[2018-05-08 19:27] VITALS: BP 106/64
[2018-05-09 00:41] VITALS: BP 113/68
[2018-05-09 07:52] VITALS: BP 104/65
[2018-05-09] MEDS: ENOXAPARIN 40 MG/0.4 ML SQ SCH (09:20)
[2018-05-09] MEDS: TAMSULOSIN 0.4 MG CAP.ER.24H PO SCH (09:20)
[2018-05-09] MEDS: DIVALPROEX 125 MG CAP.SPRINK PO SCH ×2 (09:20→21:24)
[2018-05-09] MEDS: MEMANTINE 10MG TABLET PO SCH (09:20)
[2018-05-09] MEDS: QUETIAPINE 100MG TABLET PO SCH ×3 (09:20→21:24)
[2018-05-09] MEDS: ZIPRASIDONE 20 MG INJ IM PRN (14:10)
[2018-05-09 19:26] VITALS: BP 110/68
[2018-05-10 01:08] VITALS: BP 102/63
[2018-05-10] MEDS: QUETIAPINE 100MG TABLET PO SCH ×4 (08:00→20:02)
[2018-05-10] MEDS: TAMSULOSIN 0.4 MG CAP.ER.24H PO SCH (09:00)
[2018-05-10] MEDS: MEMANTINE 10MG TABLET PO SCH (09:00)
[2018-05-10] MEDS: DIVALPROEX 125 MG CAP.SPRINK PO SCH ×2 (09:00→19:48)
[2018-05-10] MEDS: ENOXAPARIN 40 MG/0.4 ML SQ SCH (09:00)
[2018-05-10] MEDS: ZIPRASIDONE 20 MG INJ IM PRN (14:52)
[2018-05-10 19:03] VITALS: BP 109/66
[2018-05-11 01:42] VITALS: BP 98/62
[2018-05-11] MEDS: ZIPRASIDONE 20 MG INJ IM PRN (07:23)
[2018-05-11] MEDS: ENOXAPARIN 40 MG/0.4 ML SQ SCH (09:00)
[2018-05-11] MEDS: QUETIAPINE 100MG TABLET PO SCH ×3 (09:13→21:21)
[2018-05-11] MEDS: DIVALPROEX 125 MG CAP.SPRINK PO SCH ×2 (09:13→21:20)
[2018-05-11] MEDS: MEMANTINE 10MG TABLET PO SCH (09:14)
[2018-05-11] MEDS: TAMSULOSIN 0.4 MG CAP.ER.24H PO SCH (09:14)
[2018-05-11 09:59] VITALS: BP 99/60
[2018-05-11 18:40] VITALS: BP 105/65
[2018-05-12] MEDS: DIVALPROEX 125 MG CAP.SPRINK PO SCH ×2 (08:39→23:17)
[2018-05-12] MEDS: TAMSULOSIN 0.4 MG CAP.ER.24H PO SCH (08:39)
[2018-05-12] MEDS: MEMANTINE 10MG TABLET PO SCH (08:39)
[2018-05-12] MEDS: QUETIAPINE 100MG TABLET PO SCH ×3 (08:40→23:17)
[2018-05-12] MEDS: ENOXAPARIN 40 MG/0.4 ML SQ SCH (08:47)
[2018-05-13] MEDS: ENOXAPARIN 40 MG/0.4 ML SQ SCH (09:00)
[2018-05-13] MEDS: MEMANTINE 10MG TABLET PO SCH (09:18)
[2018-05-13] MEDS: QUETIAPINE 100MG TABLET PO SCH ×3 (09:18→19:00)
[2018-05-13] MEDS: TAMSULOSIN 0.4 MG CAP.ER.24H PO SCH (09:18)
[2018-05-13] MEDS: DIVALPROEX 125 MG CAP.SPRINK PO SCH ×2 (09:18→20:53)
[2018-05-14] MEDS: QUETIAPINE 25MG TABLET PO PRN ×2 (02:00→06:00)
[2018-05-14] MEDS: DIVALPROEX 125 MG CAP.SPRINK PO SCH ×2 (07:42→23:00)
[2018-05-14] MEDS: MEMANTINE 10MG TABLET PO SCH (07:42)
[2018-05-14] MEDS: QUETIAPINE 100MG TABLET PO SCH ×3 (07:43→23:00)
[2018-05-14] MEDS: TAMSULOSIN 0.4 MG CAP.ER.24H PO SCH (07:43)
[2018-05-14] MEDS: ENOXAPARIN 40 MG/0.4 ML SQ SCH (07:45)
[2018-05-14 08:24] VITALS: BP 149/76
[2018-05-14 13:35] VITALS: BP 113/68
[2018-05-14 19:33] VITALS: BP 102/63
[2018-05-15] MEDS: QUETIAPINE 25MG TABLET PO PRN ×3 (00:50→22:20)
[2018-05-15] MEDS: QUETIAPINE 100MG TABLET PO SCH ×3 (08:00→18:00)
[2018-05-15] MEDS: MEMANTINE 10MG TABLET PO SCH (09:00)
[2018-05-15] MEDS: DIVALPROEX 125 MG CAP.SPRINK PO SCH ×2 (09:00→22:20)
[2018-05-15] MEDS: ENOXAPARIN 40 MG/0.4 ML SQ SCH (09:00)
[2018-05-15] MEDS: TAMSULOSIN 0.4 MG CAP.ER.24H PO SCH (09:00)
[2018-05-16] MEDS: QUETIAPINE 25MG TABLET PO PRN ×2 (02:30→22:30)
[2018-05-16] MEDS: QUETIAPINE 100MG TABLET PO SCH ×3 (08:00→17:50)
[2018-05-16] MEDS: MEMANTINE 10MG TABLET PO SCH (08:36)
[2018-05-16] MEDS: ENOXAPARIN 40 MG/0.4 ML SQ SCH (08:36)
[2018-05-16] MEDS: DIVALPROEX 125 MG CAP.SPRINK PO SCH ×3 (08:36→21:30)
[2018-05-16] MEDS: TAMSULOSIN 0.4 MG CAP.ER.24H PO SCH (08:36)
[2018-05-16] MEDS ORDERED: DIVALPROEX 125 MG CAP.SPRINK PO ONE (13:00)
[2018-05-17] MEDS: QUETIAPINE 100MG TABLET PO SCH ×4 (08:00→22:45)
[2018-05-17] MEDS: MEMANTINE 10MG TABLET PO SCH ×2 (08:37→09:00)
[2018-05-17] MEDS: DIVALPROEX 125 MG CAP.SPRINK PO SCH ×4 (08:37→22:45)
[2018-05-17] MEDS: TAMSULOSIN 0.4 MG CAP.ER.24H PO SCH ×2 (08:37→09:00)
[2018-05-17] MEDS: ENOXAPARIN 40 MG/0.4 ML SQ SCH (08:38)
[2018-05-17] MEDS: QUETIAPINE 25MG TABLET PO PRN (17:18)
[2018-05-18] MEDS: QUETIAPINE 25MG TABLET PO PRN (00:03)
[2018-05-18] MEDS: TAMSULOSIN 0.4 MG CAP.ER.24H PO SCH (07:46)
[2018-05-18] MEDS: ENOXAPARIN 40 MG/0.4 ML SQ SCH (07:46)
[2018-05-18] MEDS: MEMANTINE 10MG TABLET PO SCH (07:46)
[2018-05-18] MEDS: QUETIAPINE 100MG TABLET PO SCH ×3 (07:46→22:56)
[2018-05-18] MEDS: DIVALPROEX 125 MG CAP.SPRINK PO SCH ×3 (07:46→22:56)
[2018-05-19] MEDS: QUETIAPINE 25MG TABLET PO PRN (01:10)
[2018-05-19] MEDS: QUETIAPINE 100MG TABLET PO SCH ×3 (08:02→19:28)
[2018-05-19] MEDS: TAMSULOSIN 0.4 MG CAP.ER.24H PO SCH (08:02)
[2018-05-19] MEDS: MEMANTINE 10MG TABLET PO SCH (08:02)
[2018-05-19] MEDS: DIVALPROEX 125 MG CAP.SPRINK PO SCH ×3 (08:02→19:28)
[2018-05-19] MEDS: ENOXAPARIN 40 MG/0.4 ML SQ SCH (08:02)
[2018-05-19] MEDS: ZIPRASIDONE 20 MG INJ IM PRN (10:06)
[2018-05-19] MEDS ORDERED: LORazepam 2 MG/ML, 1ML IVPush PRN (10:30)
[2018-05-19] MEDS ORDERED: LORazepam 2 MG/ML, 1ML IVPush ONE (16:00)
[2018-05-19] MEDS ORDERED: LORazepam 2 MG/ML, 1ML IM ONE (16:00)
[2018-05-20] MEDS: ZIPRASIDONE 20 MG INJ IM PRN ×2 (01:56→22:26)
[2018-05-20] MEDS: QUETIAPINE 100MG TABLET PO SCH ×3 (08:22→19:44)
[2018-05-20] MEDS: TAMSULOSIN 0.4 MG CAP.ER.24H PO SCH (08:22)
[2018-05-20] MEDS: DIVALPROEX 125 MG CAP.SPRINK PO SCH (08:22)
[2018-05-20] MEDS: MEMANTINE 10MG TABLET PO SCH (08:22)
[2018-05-20] MEDS: ENOXAPARIN 40 MG/0.4 ML SQ SCH (09:00)
[2018-05-20] MEDS ORDERED: HALOPERIDOL 1 MG TABLET PO PRN (12:00)
[2018-05-20] MEDS ORDERED: HALOPERIDOL 2 MG/ML ORAL SOL PO PRN (12:00)
[2018-05-20] MEDS: LORazepam 2 MG/ML, 1ML IVPush PRN (12:41)
[2018-05-20] MEDS: LORazepam 0.5MG TABLET PO PRN ×2 (13:41→20:28)
[2018-05-20] MEDS: HALOPERIDOL 5 MG/ML IM PRN (19:45)
[2018-05-21] MEDS: ENOXAPARIN 40 MG/0.4 ML SQ SCH (09:00)
[2018-05-21] MEDS: MEMANTINE 10MG TABLET PO SCH (09:17)
[2018-05-21] MEDS: QUETIAPINE 100MG TABLET PO SCH ×3 (09:17→21:57)
[2018-05-21] MEDS: TAMSULOSIN 0.4 MG CAP.ER.24H PO SCH (09:17)
[2018-05-21] MEDS: ZIPRASIDONE 20 MG INJ IM PRN (12:31)
[2018-05-22] MEDS: ZIPRASIDONE 20 MG INJ IM PRN (04:06)
[2018-05-22] MEDS: QUETIAPINE 100MG TABLET PO SCH ×3 (08:00→20:21)
[2018-05-22] MEDS: MEMANTINE 10MG TABLET PO SCH (09:00)
[2018-05-22] MEDS: ENOXAPARIN 40 MG/0.4 ML SQ SCH (09:00)
[2018-05-22] MEDS: TAMSULOSIN 0.4 MG CAP.ER.24H PO SCH (09:08)
[2018-05-22] MEDS: LORazepam 0.5MG TABLET PO PRN (11:44)
[2018-05-22 20:33] VITALS: BP 116/70
[2018-05-23] MEDS: MEMANTINE 10MG TABLET PO SCH (08:54)
[2018-05-23] MEDS: QUETIAPINE 100MG TABLET PO SCH ×3 (08:54→22:38)
[2018-05-23] MEDS: TAMSULOSIN 0.4 MG CAP.ER.24H PO SCH (08:54)
[2018-05-23] MEDS: ENOXAPARIN 40 MG/0.4 ML SQ SCH (09:00)
[2018-05-24] MEDS: TAMSULOSIN 0.4 MG CAP.ER.24H PO SCH (09:00)
[2018-05-24] MEDS: ENOXAPARIN 40 MG/0.4 ML SQ SCH (09:00)
[2018-05-24] MEDS: MEMANTINE 10MG TABLET PO SCH (10:04)
[2018-05-24] MEDS: QUETIAPINE 100MG TABLET PO SCH ×3 (10:05→19:43)
[2018-05-25] MEDS: QUETIAPINE 100MG TABLET PO SCH ×3 (08:00→19:46)
[2018-05-25] MEDS: TAMSULOSIN 0.4 MG CAP.ER.24H PO SCH (09:00)
[2018-05-25] MEDS: MEMANTINE 10MG TABLET PO SCH (09:00)
[2018-05-25] MEDS: ENOXAPARIN 40 MG/0.4 ML SQ SCH (09:00)
[2018-05-26] MEDS: TAMSULOSIN 0.4 MG CAP.ER.24H PO SCH (08:59)
[2018-05-26] MEDS: ENOXAPARIN 40 MG/0.4 ML SQ SCH (08:59)
[2018-05-26] MEDS: QUETIAPINE 100MG TABLET PO SCH ×3 (08:59→18:38)
[2018-05-26] MEDS: MEMANTINE 10MG TABLET PO SCH (08:59)
[2018-05-26] MEDS: LORazepam 0.5MG TABLET PO PRN (18:39)
[2018-05-26] MEDS: HALOPERIDOL 5 MG/ML IM PRN (23:00)
[2018-05-27] MEDS: QUETIAPINE 100MG TABLET PO SCH ×3 (08:00→18:40)
[2018-05-27] MEDS: ENOXAPARIN 40 MG/0.4 ML SQ SCH (08:41)
[2018-05-27] MEDS: MEMANTINE 10MG TABLET PO SCH (08:41)
[2018-05-27] MEDS: TAMSULOSIN 0.4 MG CAP.ER.24H PO SCH (08:41)
[2018-05-28] MEDS: QUETIAPINE 100MG TABLET PO SCH ×3 (08:00→18:27)
[2018-05-28] MEDS: ENOXAPARIN 40 MG/0.4 ML SQ SCH (08:42)
[2018-05-28] MEDS: TAMSULOSIN 0.4 MG CAP.ER.24H PO SCH (08:49)
[2018-05-28] MEDS: MEMANTINE 10MG TABLET PO SCH (08:49)
[2018-05-28] MEDS: ZIPRASIDONE 20 MG INJ IM PRN (14:53)
[2018-05-29] MEDS: QUETIAPINE 100MG TABLET PO SCH ×3 (08:00→19:13)
[2018-05-29] MEDS: MEMANTINE 10MG TABLET PO SCH (09:00)
[2018-05-29] MEDS: TAMSULOSIN 0.4 MG CAP.ER.24H PO SCH (09:00)
[2018-05-29] MEDS: ENOXAPARIN 40 MG/0.4 ML SQ SCH (09:00)
[2018-05-29] MEDS: ZIPRASIDONE 20 MG INJ IM PRN (17:01)
[2018-05-30] MEDS: QUETIAPINE 25MG TABLET PO PRN (04:11)
[2018-05-30] MEDS: HALOPERIDOL 5 MG/ML IM PRN (08:00)
[2018-05-30] MEDS: QUETIAPINE 100MG TABLET PO SCH ×3 (08:00→19:10)
[2018-05-30] MEDS: TAMSULOSIN 0.4 MG CAP.ER.24H PO SCH (08:13)
[2018-05-30] MEDS: MEMANTINE 10MG TABLET PO SCH (08:13)
[2018-05-30] MEDS: ENOXAPARIN 40 MG/0.4 ML SQ SCH (08:13)
[2018-05-31] MEDS: ZIPRASIDONE 20 MG INJ IM PRN (01:51)
[2018-05-31 06:27] LABS: BASOPHILS # (AUTO) 0.03 x10^3/uL (0-0.1); BASOPHILS % (AUTO) 0 % (0-1); EOSINOPHILS # (AUTO) 0.08 x10^3/uL (0-0.4); EOSINOPHILS % (AUTO) 1 % (1-7); LYMPHOCYTES # (AUTO) 2.04 x10^3/uL (1-3.4); LYMPHOCYTES % (AUTO) 20 % (22-44); MD NO; MEAN CORPUSCULAR HEMOGLOBIN 31.4 pg (27.0-34.8); MEAN CORPUSCULAR VOLUME 92.4 fL (80-100); MEAN PLATELET VOLUME 9.9 fL (7.4-10.4); MONOCYTES # (AUTO) 0.77 x10^3/uL (0.2-0.8); MONOCYTES % (AUTO) 8 % (2-9); NEUTROPHILS # (AUTO) 7.42 x10^3/uL (1.8-6.8); NEUTROPHILS % (AUTO) 72 % (42-75); PLATELET COUNT 223 x10^3/uL (130-400); RED BLOOD COUNT 3.45 x10^6/uL (3.82-5.3); RED CELL DISTRIBUTION WIDTH 13.6 % (9.6-15.2)
[2018-05-31 06:38] LABS: CREATININE 1.01 mg/dL (0.55-1.02)
[2018-05-31] MEDS: QUETIAPINE 100MG TABLET PO SCH ×3 (08:00→19:38)
[2018-05-31 08:21] LABS: ALBUMIN 3.6 g/dL (3.4-5.0); ANION GAP 9 mmol/L (5-15); CALCIUM 9.4 mg/dL (8.5-10.1); CHLORIDE 106 mmol/L (98-107); CREATININE 1.11 mg/dL (0.55-1.02)
[2018-05-31] MEDS: TAMSULOSIN 0.4 MG CAP.ER.24H PO SCH (09:00)
[2018-05-31] MEDS: ENOXAPARIN 40 MG/0.4 ML SQ SCH (09:00)
[2018-05-31] MEDS: MEMANTINE 10MG TABLET PO SCH (09:00)
[2018-05-31] MEDS: INSULIN LISPRO 100 UNITS/ML, PEN SQ-INSULIN SCH ×3 (11:12→21:00)
[2018-06-01] MEDS: QUETIAPINE 100MG TABLET PO SCH ×3 (10:03→18:09)
[2018-06-01] MEDS: INSULIN LISPRO 100 UNITS/ML, PEN SQ-INSULIN SCH ×4 (10:03→20:03)
[2018-06-01] MEDS: ENOXAPARIN 40 MG/0.4 ML SQ SCH (10:03)
[2018-06-01] MEDS: TAMSULOSIN 0.4 MG CAP.ER.24H PO SCH (13:06)
[2018-06-01] MEDS: MEMANTINE 10MG TABLET PO SCH (13:06)
[2018-06-02] MEDS: QUETIAPINE 25MG TABLET PO PRN (00:58)
[2018-06-02] MEDS: LORazepam 0.5MG TABLET PO PRN (06:27)
[2018-06-02] MEDS: INSULIN LISPRO 100 UNITS/ML, PEN SQ-INSULIN SCH ×4 (07:00→20:02)
[2018-06-02] MEDS: TAMSULOSIN 0.4 MG CAP.ER.24H PO SCH (11:06)
[2018-06-02] MEDS: QUETIAPINE 100MG TABLET PO SCH ×3 (11:06→18:02)
[2018-06-02] MEDS: MEMANTINE 10MG TABLET PO SCH (11:06)
[2018-06-02] MEDS: ENOXAPARIN 40 MG/0.4 ML SQ SCH (11:07)
[2018-06-02] MEDS: LORazepam 2 MG/ML, 1ML IVPush PRN (20:35)
[2018-06-03] MEDS: INSULIN LISPRO 100 UNITS/ML, PEN SQ-INSULIN SCH ×4 (07:00→21:00)
[2018-06-03] MEDS: QUETIAPINE 100MG TABLET PO SCH ×3 (08:00→20:14)
[2018-06-03] MEDS: ZIPRASIDONE 20 MG INJ IM PRN (08:04)
[2018-06-03] MEDS: MEMANTINE 10MG TABLET PO SCH (09:00)
[2018-06-03] MEDS: ENOXAPARIN 40 MG/0.4 ML SQ SCH (09:00)
[2018-06-03] MEDS: TAMSULOSIN 0.4 MG CAP.ER.24H PO SCH (09:00)
[2018-06-03] MEDS: LORazepam 0.5MG TABLET PO PRN (20:15)
[2018-06-03] MEDS: QUETIAPINE 25MG TABLET PO PRN (20:15)
[2018-06-04] MEDS: INSULIN LISPRO 100 UNITS/ML, PEN SQ-INSULIN SCH ×4 (07:00→21:00)
[2018-06-04] MEDS: QUETIAPINE 100MG TABLET PO SCH ×3 (08:00→20:17)
[2018-06-04] MEDS: TAMSULOSIN 0.4 MG CAP.ER.24H PO SCH (09:00)
[2018-06-04] MEDS: ENOXAPARIN 40 MG/0.4 ML SQ SCH (09:00)
[2018-06-04] MEDS: MEMANTINE 10MG TABLET PO SCH (09:00)
[2018-06-04] MEDS: ZIPRASIDONE 20 MG INJ IM PRN (09:59)
[2018-06-05] MEDS: INSULIN LISPRO 100 UNITS/ML, PEN SQ-INSULIN SCH ×4 (07:00→19:44)
[2018-06-05] MEDS: TAMSULOSIN 0.4 MG CAP.ER.24H PO SCH (08:19)
[2018-06-05] MEDS: QUETIAPINE 100MG TABLET PO SCH ×3 (08:20→18:13)
[2018-06-05] MEDS: MEMANTINE 10MG TABLET PO SCH (08:20)
[2018-06-05] MEDS: ENOXAPARIN 40 MG/0.4 ML SQ SCH (08:20)
[2018-06-05] MEDS: QUETIAPINE 25MG TABLET PO PRN ×2 (16:02→20:17)
[2018-06-06] MEDS: QUETIAPINE 25MG TABLET PO PRN ×2 (04:14→20:56)
[2018-06-06] MEDS: INSULIN LISPRO 100 UNITS/ML, PEN SQ-INSULIN SCH ×5 (07:00→20:59)
[2018-06-06] MEDS: QUETIAPINE 100MG TABLET PO SCH ×3 (08:27→19:00)
[2018-06-06] MEDS: MEMANTINE 10MG TABLET PO SCH (08:27)
[2018-06-06] MEDS: TAMSULOSIN 0.4 MG CAP.ER.24H PO SCH (08:27)
[2018-06-06] MEDS: ENOXAPARIN 40 MG/0.4 ML SQ SCH (08:27)
[2018-06-07] MEDS: INSULIN LISPRO 100 UNITS/ML, PEN SQ-INSULIN SCH ×2 (07:00→11:00)
[2018-06-07] MEDS: QUETIAPINE 100MG TABLET PO SCH ×2 (08:00→11:23)
[2018-06-07] MEDS: ENOXAPARIN 40 MG/0.4 ML SQ SCH (09:00)
[2018-06-07] MEDS: MEMANTINE 10MG TABLET PO SCH (09:00)
[2018-06-07] MEDS: TAMSULOSIN 0.4 MG CAP.ER.24H PO SCH (09:00)
[2018-06-07] MEDS ORDERED: QUET100T PO ×2 (09:01)
[2018-06-07] MEDS ORDERED: MEMA10TA20 PO (09:01)
[2018-06-07] MEDS ORDERED: TAMS-11 PO (09:01)
[2018-06-07] MEDS ORDERED: QUET25TA7 PO (09:01)
== END 2018-06-07 15:24 | DRG 884 ==
LOC: ED 18:58 → OBSVTOIN 23:31 → INTOOBSV 23:31 → EDIP 23:31 → 2N 03-14 13:12 → 4WST 03-17 09:52 → 4EST 03-19 09:14 → 4WST 04-01 15:37 → 4NOR 04-08 04:59 → 4WST 04-13 22:04 → 4EST 05-19 15:52 → 4WST 05-19 18:24 → 4EST 05-19 20:59
PROVIDERS: ADMIT Family Medicine; ATTEND Hospitalist
DX: F03.91 Unspecified dementia, unspecified severity, with behavioral disturbance (principal); F23 Brief psychotic disorder; N17.9 Acute kidney failure, unspecified; K56.41 Fecal impaction; D64.9 Anemia, unspecified; E11.65 Type 2 diabetes mellitus with hyperglycemia; E83.39 Other disorders of phosphorus metabolism; E83.42 Hypomagnesemia; E87.6 Hypokalemia; F41.9 Anxiety disorder, unspecified; R41.89 Other symptoms and signs involving cognitive functions and awareness; S01.01XA Laceration without foreign body of scalp, initial encounter; W18.30XA Fall on same level, unspecified, initial encounter; R60.0 Localized edema; Y93.89 Activity, other specified; Y92.89 Other specified places as the place of occurrence of the external cause; Y99.8 Other external cause status; Z78.1 Physical restraint status; Z79.899 Other long term (current) drug therapy; Z81.8 Family history of other mental and behavioral disorders; Z91.14 Patient's other noncompliance with medication regimen
CPT/HCPCS: 36415; 70450; 71045; 74177; 80048; 80053; 80307; 80329; 81001; 81003; 82040; 82140; 82565; 82962; 83735; 84100; 85025; 86480; 87086; 87324; 93005; G0378; J1650; J2704; J3480; J3486; J3490; Q9967; G0480; J1630; J1815; J2060; J3475

== ENCOUNTER 2018-06-06 17:46 | Inpatient (IN) | payer MEDICAID, OTHER ==
[~2018-06-06] VITALS: Ht 152.4 cm; Wt 62.8 kg
[2018-06-07] MEDS ORDERED: BISACODYL 10 MG SUPP PR PRN (08:30)
[2018-06-07] MEDS ORDERED: ACETAMINOPHEN 325 MG TABLET PO PRN (08:30)
[2018-06-07] MEDS ORDERED: DOCUSATE 100 MG CAPSULE PO PRN (08:30)
[2018-06-07] MEDS ORDERED: POLYETHYLENE GLYCOL 17 GM PACKET PO PRN (08:30)
[2018-06-07] MEDS ORDERED: TAMS-11 PO (09:01)
[2018-06-07] MEDS ORDERED: QUET100T PO ×2 (09:01)
[2018-06-07] MEDS ORDERED: MEMA10TA20 PO (09:01)
[2018-06-07] MEDS ORDERED: QUET25TA7 PO (09:01)
[2018-06-07] MEDS ORDERED: PLEASE ENTER HEIGHT AND WEIGHT MC SCH (16:30)
[2018-06-07] MEDS ORDERED: OLANZAPINE 10 MG INJ IM PRN (17:00)
[2018-06-07 17:07] VITALS: BP 120/72
[2018-06-07 19:20] VITALS: BP 128/69
[2018-06-07] MEDS: OLANZAPINE 5 MG TABLET PO PRN (20:15)
[2018-06-07] MEDS: QUETIAPINE 100MG TABLET PO SCH (20:16)
[2018-06-08 07:30] VITALS: BP 110/68
[2018-06-08] MEDS: QUETIAPINE 100MG TABLET PO SCH ×4 (09:00→20:00)
[2018-06-08] MEDS: TAMSULOSIN 0.4 MG CAP.ER.24H PO SCH ×2 (09:00→09:26)
[2018-06-08] MEDS: MEMANTINE 10MG TABLET PO SCH (09:26)
[2018-06-09 07:17] VITALS: BP 130/80
[2018-06-09] MEDS: QUETIAPINE 100MG TABLET PO SCH ×3 (08:54→19:47)
[2018-06-09] MEDS: TAMSULOSIN 0.4 MG CAP.ER.24H PO SCH (08:54)
[2018-06-09] MEDS: MEMANTINE 10MG TABLET PO SCH (08:54)
[2018-06-09] MEDS ORDERED: DEXTROSE 4 GM TAB.CHEW PO PRN (11:00)
[2018-06-09] MEDS ORDERED: DEXTROSE 50%, 50ML SYRINGE IVPush PRN (11:00)
[2018-06-09] MEDS ORDERED: GLUCAGON 1 MG IM PRN (11:00)
[2018-06-09] MEDS: INSULIN LISPRO 100 UNITS/ML, PEN SQ-INSULIN SCH ×3 (12:00→21:25)
[2018-06-09 19:48] VITALS: BP 107/68
[2018-06-09] MEDS: SODIUM CHLORIDE FLUSH 10ML SYR IVF SCH (21:00)
[2018-06-10] MEDS: QUETIAPINE 25MG TABLET PO PRN ×2 (00:43→22:27)
[2018-06-10 07:03] VITALS: BP 104/68
[2018-06-10] MEDS: INSULIN LISPRO 100 UNITS/ML, PEN SQ-INSULIN SCH ×4 (08:00→19:56)
[2018-06-10] MEDS: MEMANTINE 10MG TABLET PO SCH (08:49)
[2018-06-10] MEDS: TAMSULOSIN 0.4 MG CAP.ER.24H PO SCH (08:50)
[2018-06-10] MEDS: QUETIAPINE 100MG TABLET PO SCH ×3 (08:50→20:14)
[2018-06-10] MEDS: SODIUM CHLORIDE FLUSH 10ML SYR IVF SCH ×2 (08:53→20:16)
[2018-06-10 19:36] VITALS: BP 107/69
[2018-06-11] MEDS: INSULIN LISPRO 100 UNITS/ML, PEN SQ-INSULIN SCH ×4 (07:00→20:14)
[2018-06-11 07:15] VITALS: BP 131/75
[2018-06-11] MEDS: QUETIAPINE 100MG TABLET PO SCH ×3 (08:37→20:08)
[2018-06-11] MEDS: TAMSULOSIN 0.4 MG CAP.ER.24H PO SCH (08:38)
[2018-06-11] MEDS: MEMANTINE 10MG TABLET PO SCH (08:38)
[2018-06-11] MEDS: SODIUM CHLORIDE FLUSH 10ML SYR IVF SCH ×3 (08:38→21:00)
[2018-06-12 07:27] VITALS: BP 120/68
[2018-06-12] MEDS: INSULIN LISPRO 100 UNITS/ML, PEN SQ-INSULIN SCH ×4 (08:10→19:59)
[2018-06-12] MEDS: MEMANTINE 10MG TABLET PO SCH (08:42)
[2018-06-12] MEDS: QUETIAPINE 100MG TABLET PO SCH ×3 (08:42→19:57)
[2018-06-12] MEDS: TAMSULOSIN 0.4 MG CAP.ER.24H PO SCH (08:49)
[2018-06-12] MEDS: SODIUM CHLORIDE FLUSH 10ML SYR IVF SCH ×2 (09:00→20:07)
[2018-06-12 19:08] VITALS: BP 151/87
[2018-06-13 07:20] VITALS: BP 106/69
[2018-06-13] MEDS: INSULIN LISPRO 100 UNITS/ML, PEN SQ-INSULIN SCH ×4 (07:33→20:15)
[2018-06-13] MEDS: TAMSULOSIN 0.4 MG CAP.ER.24H PO SCH (08:05)
[2018-06-13] MEDS: QUETIAPINE 100MG TABLET PO SCH ×3 (08:05→21:40)
[2018-06-13] MEDS: MEMANTINE 10MG TABLET PO SCH (08:05)
[2018-06-13] MEDS: SODIUM CHLORIDE FLUSH 10ML SYR IVF SCH (08:05)
[2018-06-13 19:32] VITALS: BP 97/60
[2018-06-14 07:20] VITALS: BP 124/76
[2018-06-14] MEDS: INSULIN LISPRO 100 UNITS/ML, PEN SQ-INSULIN SCH ×4 (07:40→20:04)
[2018-06-14] MEDS: TAMSULOSIN 0.4 MG CAP.ER.24H PO SCH (08:11)
[2018-06-14] MEDS: QUETIAPINE 100MG TABLET PO SCH ×3 (08:11→20:00)
[2018-06-14] MEDS: MEMANTINE 10MG TABLET PO SCH (08:11)
[2018-06-14 19:33] VITALS: BP 113/70
[2018-06-15] MEDS: INSULIN LISPRO 100 UNITS/ML, PEN SQ-INSULIN SCH ×5 (07:53→22:08)
[2018-06-15 07:54] VITALS: BP 111/69
[2018-06-15] MEDS: MEMANTINE 10MG TABLET PO SCH (08:20)
[2018-06-15] MEDS: QUETIAPINE 100MG TABLET PO SCH ×4 (08:20→23:14)
[2018-06-15] MEDS: TAMSULOSIN 0.4 MG CAP.ER.24H PO SCH (08:21)
[2018-06-15 20:00] VITALS: BP 96/64
[2018-06-16 07:17] VITALS: BP 138/93
[2018-06-16] MEDS: MEMANTINE 10MG TABLET PO SCH (08:01)
[2018-06-16] MEDS: QUETIAPINE 100MG TABLET PO SCH ×3 (08:01→20:26)
[2018-06-16] MEDS: TAMSULOSIN 0.4 MG CAP.ER.24H PO SCH (08:01)
[2018-06-16] MEDS: INSULIN LISPRO 100 UNITS/ML, PEN SQ-INSULIN SCH ×4 (08:01→20:28)
[2018-06-16 19:57] VITALS: BP 115/74
[2018-06-17] MEDS: INSULIN LISPRO 100 UNITS/ML, PEN SQ-INSULIN SCH ×4 (07:00→20:47)
[2018-06-17 07:08] VITALS: BP 147/72
[2018-06-17] MEDS: MEMANTINE 10MG TABLET PO SCH (08:13)
[2018-06-17] MEDS: QUETIAPINE 100MG TABLET PO SCH ×3 (08:13→20:51)
[2018-06-17] MEDS: TAMSULOSIN 0.4 MG CAP.ER.24H PO SCH (08:13)
[2018-06-17 19:50] VITALS: BP 106/68
[2018-06-18] MEDS: QUETIAPINE 100MG TABLET PO SCH ×3 (07:33→20:02)
[2018-06-18 07:38] VITALS: BP 120/67
[2018-06-18] MEDS: INSULIN LISPRO 100 UNITS/ML, PEN SQ-INSULIN SCH ×4 (08:11→20:06)
[2018-06-18] MEDS: MEMANTINE 10MG TABLET PO SCH (08:12)
[2018-06-18] MEDS: TAMSULOSIN 0.4 MG CAP.ER.24H PO SCH (08:12)
[2018-06-18 19:38] VITALS: BP 143/81
[2018-06-19] MEDS: INSULIN LISPRO 100 UNITS/ML, PEN SQ-INSULIN SCH ×4 (07:37→20:27)
[2018-06-19] MEDS: QUETIAPINE 100MG TABLET PO SCH ×3 (07:38→20:27)
[2018-06-19 07:47] VITALS: BP 136/84
[2018-06-19] MEDS: MEMANTINE 10MG TABLET PO SCH (08:16)
[2018-06-19] MEDS: TAMSULOSIN 0.4 MG CAP.ER.24H PO SCH (08:16)
[2018-06-19 19:28] VITALS: BP 120/76
[2018-06-20 07:20] VITALS: BP 145/75
[2018-06-20] MEDS: INSULIN LISPRO 100 UNITS/ML, PEN SQ-INSULIN SCH ×4 (07:30→20:42)
[2018-06-20] MEDS: MEMANTINE 10MG TABLET PO SCH (08:26)
[2018-06-20] MEDS: TAMSULOSIN 0.4 MG CAP.ER.24H PO SCH (08:26)
[2018-06-20] MEDS: QUETIAPINE 100MG TABLET PO SCH ×3 (08:26→22:19)
[2018-06-20 19:59] VITALS: BP 103/66
[2018-06-21] MEDS: INSULIN LISPRO 100 UNITS/ML, PEN SQ-INSULIN SCH ×5 (07:00→20:36)
[2018-06-21 07:38] VITALS: BP 135/75
[2018-06-21] MEDS: QUETIAPINE 100MG TABLET PO SCH ×4 (08:15→20:36)
[2018-06-21] MEDS: TAMSULOSIN 0.4 MG CAP.ER.24H PO SCH (08:15)
[2018-06-21] MEDS: MEMANTINE 10MG TABLET PO SCH (08:15)
[2018-06-21 19:50] VITALS: BP 135/81
[2018-06-22] MEDS: INSULIN LISPRO 100 UNITS/ML, PEN SQ-INSULIN SCH ×4 (07:00→19:53)
[2018-06-22 07:19] VITALS: BP 102/57
[2018-06-22] MEDS: MEMANTINE 10MG TABLET PO SCH (08:23)
[2018-06-22] MEDS: QUETIAPINE 100MG TABLET PO SCH ×3 (08:23→19:40)
[2018-06-22] MEDS: TAMSULOSIN 0.4 MG CAP.ER.24H PO SCH (08:23)
[2018-06-22 19:35] VITALS: BP 107/66
[2018-06-23] MEDS: INSULIN LISPRO 100 UNITS/ML, PEN SQ-INSULIN SCH ×4 (07:00→20:11)
[2018-06-23 07:10] VITALS: BP 111/62
[2018-06-23] MEDS: TAMSULOSIN 0.4 MG CAP.ER.24H PO SCH (08:13)
[2018-06-23] MEDS: QUETIAPINE 100MG TABLET PO SCH ×3 (08:14→19:56)
[2018-06-23] MEDS: MEMANTINE 10MG TABLET PO SCH (08:14)
[2018-06-23 19:22] VITALS: BP 101/53
[2018-06-24] MEDS: OLANZAPINE 5 MG TABLET PO PRN ×2 (05:14→14:08)
[2018-06-24] MEDS: INSULIN LISPRO 100 UNITS/ML, PEN SQ-INSULIN SCH ×4 (07:00→19:49)
[2018-06-24 07:11] VITALS: BP 93/58
[2018-06-24] MEDS: TAMSULOSIN 0.4 MG CAP.ER.24H PO SCH (08:33)
[2018-06-24] MEDS: MEMANTINE 10MG TABLET PO SCH (08:33)
[2018-06-24] MEDS: QUETIAPINE 100MG TABLET PO SCH ×3 (08:34→19:34)
[2018-06-24 19:22] VITALS: BP 102/67
[2018-06-25] MEDS: OLANZAPINE 5 MG TABLET PO PRN (03:04)
[2018-06-25] MEDS: INSULIN LISPRO 100 UNITS/ML, PEN SQ-INSULIN SCH ×4 (07:00→20:03)
[2018-06-25 07:10] VITALS: BP 95/58
[2018-06-25] MEDS: QUETIAPINE 100MG TABLET PO SCH ×3 (09:00→20:02)
[2018-06-25] MEDS: TAMSULOSIN 0.4 MG CAP.ER.24H PO SCH (09:01)
[2018-06-25] MEDS: MEMANTINE 10MG TABLET PO SCH (09:01)
[2018-06-25 19:34] VITALS: BP 101/64
[2018-06-26] MEDS: INSULIN LISPRO 100 UNITS/ML, PEN SQ-INSULIN SCH ×5 (07:00→20:20)
[2018-06-26 07:19] VITALS: BP 124/75
[2018-06-26] MEDS: QUETIAPINE 100MG TABLET PO SCH ×3 (08:14→20:18)
[2018-06-26] MEDS: MEMANTINE 10MG TABLET PO SCH (08:14)
[2018-06-26] MEDS: TAMSULOSIN 0.4 MG CAP.ER.24H PO SCH (08:14)
[2018-06-26 16:18] LABS: CHOL/HDL RATIO 3.8; LDL/HDL RATIO 2.3 (0.5-3.0)
[2018-06-26 19:27] VITALS: BP 104/68
[2018-06-26] MEDS: OLANZAPINE 5 MG TABLET PO PRN (20:49)
[2018-06-27 07:10] VITALS: BP 95/61
[2018-06-27] MEDS: INSULIN LISPRO 100 UNITS/ML, PEN SQ-INSULIN SCH (07:35)
[2018-06-27] MEDS: TAMSULOSIN 0.4 MG CAP.ER.24H PO SCH (07:39)
[2018-06-27] MEDS: MEMANTINE 10MG TABLET PO SCH (07:39)
[2018-06-27] MEDS: QUETIAPINE 100MG TABLET PO SCH (07:42)
== END 2018-06-27 08:45 | disposition home or self-care (01) | DRG 885 ==
LOC: 3E 06-07 16:02
PROVIDERS: ADMIT Psychiatry & Neurology Psychosomatic Medicine; ATTEND Psychiatry & Neurology Psychosomatic Medicine
DX: F25.0 Schizoaffective disorder, bipolar type (principal); N17.9 Acute kidney failure, unspecified; F03.91 Unspecified dementia, unspecified severity, with behavioral disturbance; E11.65 Type 2 diabetes mellitus with hyperglycemia; D64.9 Anemia, unspecified; E86.0 Dehydration; G47.00 Insomnia, unspecified; F09 Unspecified mental disorder due to known physiological condition; R33.9 Retention of urine, unspecified; R41.3 Other amnesia; Z91.19 Patient's noncompliance with other medical treatment and regimen; Z79.899 Other long term (current) drug therapy
CPT/HCPCS: 80061; 82962; J1815